=== PATIENT | female | born 1935 | race Caucasian/White ===

== ENCOUNTER 2019-04-10 10:57 | Inpatient (IN) | payer MEDICARE, OTHER ==
[2019-04-10] VITALS (10 sets, daily range): BP systolic 160–236; BP diastolic 63–90
[~2019-04-10] VITALS: Ht 154.9 cm; Wt 99.7 kg
[2019-04-10] MEDS ORDERED: NS IV 1000 ML 1,000 ML ONE (11:19)
--- NOTE | 2019-04-10 11:19 | ED General ---
General Stated Complaint: NAUSEA Source of Information: Patient Exam Limitations: No Limitations History of Present Illness Date Seen by Provider: Apr 10, 2019 Time Seen by Provider: 11:17 Initial Comments Patient has been vomiting for 2 days. She feels very weak. She denies fevers or chills. She denies urinary symptoms or abdominal pain. She was seen by her primary care physician yesterday who diagnosed a urinary tract infection. She was prescribed antibiotics but was unable to fill them.due to the late hour. Allergies and Home Medications Allergies Coded Allergies: No Known Drug Allergies (Unverified , 04/10/19) Patient Home Medication List Home Medication List Reviewed: Yes Review of Systems Review of Systems Constitutional: No fever; malaise, weakness EENTM: no symptoms reported Respiratory: no symptoms reported Cardiovascular: no symptoms reported Gastrointestinal: abdominal pain; No diarrhea; nausea, vomiting Genitourinary: see HPI Musculoskeletal: muscle pain All Other Systems Reviewed Negative Unless Noted: Yes Past Rizhqxg-Vzohhh-Sslysx Hx Patient Social History Alcohol Use: Denies Use Smoking Status: Never a Smoker Physical Exam Vital Signs Vital Signs - First Documented 04/10/19 10:57 Temp 37.1 Pulse 62 Resp 20 B/P (MAP) 120/47 (71) Pulse Ox 93 O2 Delivery Room Air Capillary Refill : Height, Weight, BMI Height: '" Weight: lbs. oz. kg; BMI Method: General Appearance: No Apparent Distress, WD/WN Eyes: Bilateral Eye Normal Inspection, Bilateral Eye PERRL, Bilateral Eye EOMI HEENT: PERRL/EOMI, Pharynx Normal Neck: Supple Respiratory: Lungs Clear, Normal Breath Sounds Cardiovascular: Regular Rate, Rhythm, No Edema Gastrointestinal: Non Tender, Soft Extremity: Normal Inspection, Normal Range of Motion Neurologic/Psychiatric: Alert, Oriented x3, No Motor/Sensory Deficits Skin: Cool, Damp Focused Exam Lactate Level 04/10/19 11:20: Lactic Acid Level 3.76*H Lactic Acid Level Laboratory Tests Test 04/10/19 11:20 Lactic Acid Level 3.76 MMOL/L (0.50-2.00) *H Progress/Results/Core Measures Suspected Sepsis SIRS Temperature: Pulse: Respiratory Rate: Laboratory Tests 04/10/19 11:05: White Blood Count 12.0H Blood Pressure / Mean: 04/10/19 11:20: Lactic Acid Level 3.76*H Laboratory Tests 04/10/19 11:05: Creatinine 0.92, Platelet Count 187, Total Bilirubin 0.8 Results/Orders Lab Results Laboratory Tests Test 04/10/19 11:05 04/10/19 11:20 Range/Units White Blood Count 12.0 H 4.3-11.0 10^3/uL Red Blood Count 5.25 4.35-5.85 10^6/uL Hemoglobin 16.0 11.5-16.0 G/DL Hematocrit 45 35-52 % Mean Corpuscular Volume 86 80-99 FL Mean Corpuscular Hemoglobin 30 25-34 PG Mean Corpuscular Hemoglobin Concent 35 32-36 G/DL Red Cell Distribution Width 12.2 10.0-14.5 % Platelet Count 187 130-400 10^3/uL Mean Platelet Volume 10.5 H 7.4-10.4 FL Neutrophils (%) (Auto) 82 H 42-75 % Lymphocytes (%) (Auto) 15 12-44 % Monocytes (%) (Auto) 3 0-12 % Eosinophils (%) (Auto) 0 0-10 % Basophils (%) (Auto) 0 0-10 % Neutrophils # (Auto) 9.8 H 1.8-7.8 X 10^3 Lymphocytes # (Auto) 1.8 1.0-4.0 X 10^3 Monocytes # (Auto) 0.3 0.0-1.0 X 10^3 Eosinophils # (Auto) 0.0 0.0-0.3 10^3/uL Basophils # (Auto) 0.0 0.0-0.1 10^3/uL Sodium Level 126 L 135-145 MMOL/L Potassium Level 3.2 L 3.6-5.0 MMOL/L Chloride Level 83 L 98-107 MMOL/L Carbon Dioxide Level 25 21-32 MMOL/L Anion Gap 18 H 5-14 MMOL/L Blood Urea Nitrogen 12 7-18 MG/DL Creatinine 0.92 0.60-1.30 MG/DL Estimat Glomerular Filtration Rate 58 BUN/Creatinine Ratio 13 Glucose Level 178 H 70-105 MG/DL Calcium Level 9.3 8.5-10.1 MG/DL Corrected Calcium 9.0 8.5-10.1 MG/DL Magnesium Level 1.6 1.6-2.4 MG/DL Total Bilirubin 0.8 0.1-1.0 MG/DL Aspartate Amino Transf (AST/SGOT) 30 5-34 U/L Alanine Aminotransferase (ALT/SGPT) 15 0-55 U/L Alkaline Phosphatase 83 40-136 U/L Total Protein 7.7 6.4-8.2 GM/DL Albumin 4.4 3.2-4.5 GM/DL Lipase 22 8-78 U/L Lactic Acid Level 3.76 *H 0.50-2.00 MMOL/L My Orders Orders - GLENIS OSORIO MD Cbc With Automated Diff (04/10/19 11:04) Comprehensive Metabolic Panel (04/10/19 11:04) Lactic Acid Analyzer (04/10/19 11:04) Lipase (04/10/19 11:04) Magnesium (04/10/19 11:04) Ua Culture If Indicated (04/10/19 11:04) Catheter(Urinary) Insert & Ass 03,15 (04/10/19 11:05) Abdomen Flat & Upright/Decub (04/10/19 11:15) Chest 1 View Ap/Pa Only (04/10/19 11:15) Ed Iv/Invasive Line Start (04/10/19 11:24) Ns Iv 1000 Ml (Sodium Chloride 0.9%) (04/10/19 11:24) Ns Iv 1000 Ml (Sodium Chloride 0.9%) (04/10/19 11:19) Blood Culture (04/10/19 11:53) Ceftriaxone For Iv Use (Rocephin For I (04/10/19 12:00) Vital Signs/I&O 04/10/19 10:57 Temp 37.1 Pulse 62 Resp 20 B/P (MAP) 120/47 (71) Pulse Ox 93 O2 Delivery Room Air Capillary Refill : Departure Communication (Admissions) Time/Spoke to Admitting Phy: 12:[address] Demarco who will admit at [facility] Impression Primary Impression: UTI (urinary tract infection) Additional Impressions: Sepsis Hyponatremia Vomiting Disposition: 09 ADMITTED INPATIENT Condition: Stable Admissions Decision to Admit Reason: Admit from ER (General) Decision to Admit/Date: Apr 10, 2019 Time/Decision to Admit Time: 12:20 Departure-Patient Inst. Referrals: MILES ROONEY MD (PCP/Family) Primary Care Physician GLENIS OSORIO MD Apr 10, 2019 11:19
[2019-04-10] MEDS ORDERED: SIMV40TA4 PO (11:21)
[2019-04-10] MEDS ORDERED: CIPR250T3 (11:21)
[2019-04-10] MEDS ORDERED: METO50TA15 PO (11:21)
[2019-04-10] MEDS ORDERED: PARO20TA5 PO (11:21)
[2019-04-10] MEDS ORDERED: LOSA50TA63 PO (11:21)
[2019-04-10] MEDS ORDERED: NS IV 1000 ML 1,000 ML IV SCH (11:24)
[2019-04-10 11:27] LABS: MEAN CORPUSCULAR HEMOGLOBIN 30 PG (25-34)
[2019-04-10 11:31] LABS: BASOPHILS % (AUTO) 0 % (0-10); EOSINOPHILS % (AUTO) 0 % (0-10); HEMATOCRIT 45 % (35-52); LYMPHOCYTES # (AUTO) 1.8 X 10^3 (1.0-4.0); LYMPHOCYTES % (AUTO) 15 % (12-44); MEAN CORPUSCULAR HGB CONC 35 G/DL (32-36); MEAN CORPUSCULAR VOLUME 86 FL (80-99); MEAN PLATELET VOLUME 10.5 FL (7.4-10.4); MONOCYTES # (AUTO) 0.3 X 10^3 (0.0-1.0); MONOCYTES % (AUTO) 3 % (0-12); NEUTROPHILS # (AUTO) 9.8 X 10^3 (1.8-7.8); NEUTROPHILS % (AUTO) 82 % (42-75); PLATELET COUNT 187 10^3/uL (130-400); RED CELL DISTRIBUTION WIDTH 12.2 % (10.0-14.5)
[2019-04-10 11:42] LABS: CALCIUM 9.3 MG/DL (8.5-10.1); CREATININE SERUM 0.92 MG/DL (0.60-1.30); POTASSIUM 3.2 MMOL/L (3.6-5.0)
[2019-04-10 11:43] LABS: ALBUMIN 4.4 GM/DL (3.2-4.5); BILIRUBIN,TOTAL 0.8 MG/DL (0.1-1.0); MAGNESIUM 1.6 MG/DL (1.6-2.4); TOTAL PROTEIN 7.7 GM/DL (6.4-8.2)
--- NOTE | 2019-04-10 11:55 | Diagnostic Imaging Report ---
EXAMINATION: Abdomen 2 view HISTORY: Urinary tract infection. FINDINGS: No comparison available. Bowel gas pattern is normal. No free air is seen. Phleboliths are present in the pelvis. IMPRESSION: 1. Normal bowel gas pattern. Dictated by: Dictated on workstation # [id number]
--- NOTE | 2019-04-10 11:55 | Diagnostic Imaging Report ---
EXAMINATION: Chest 1 view HISTORY: Urinary tract infection FINDINGS: No comparison available. The lungs are clear. No edema. No pneumonia. No pleural effusion. No pneumothorax. Heart is normal in size. IMPRESSION: 1. Clear lungs. Dictated by: Dictated on workstation # [id number]
[2019-04-10] MEDS ORDERED: cefTRIAXone FOR IV USE 1,000 MG in WATER (STERILE) FOR INJECTION 10 ML IV ONE (12:00)
[2019-04-10] MEDS ORDERED: NS W/KCL 20 MEQ/L 1,000 ML IV SCH (12:15)
[2019-04-10] MEDS ORDERED: NS IV 1000 ML 1,000 ML IV ONE (12:39)
[2019-04-10 12:48] LABS: CLARITY,URINE SL CLOUDY; COLOR,URINE YELLOW
[2019-04-10 12:49] LABS: BACTERIA,URINE FEW /HPF; BILIRUBIN,URINE NEGATIVE (NEGATIVE); GLUCOSE, URINE (UA) NEGATIVE (NEGATIVE); HYALINE CASTS, URINE 25-50 /LPF; KETONES,URINE 1+ (NEGATIVE); LEUKOCYTE ESTERASE ,URINE NEGATIVE (NEGATIVE); NITRITE,URINE NEGATIVE (NEGATIVE); PH,URINE 7.5 (5-9); PROTEIN,URINE 3+ (NEGATIVE); RBC,URINE 25-50 /HPF; UROBILINOGEN,URINE 0.2 MG/DL (NORMAL)
[2019-04-10] MEDS ORDERED: ANTACID SUSP 30 ML UDC (MYLANTA) PO PRN (13:45)
[2019-04-10] MEDS ORDERED: ACETAMINOPHEN 325 MG TABLET PO PRN (13:45)
[2019-04-10] MEDS ORDERED: MILK OF MAGNESIA 400 MG/5 ML 30 ML UDC PO PRN (13:45)
[2019-04-10] MEDS: NS IV 1000 ML 1,000 ML IV SCH ×2 (14:30→23:19)
--- NOTE | 2019-04-10 14:36 | NUR ---
PT ADMITTED TO ROOM 406 VIA EMS FROM ED FOR UROSEPSIS. A/OX4. IV TO LEFT AC INFUSING NS AT 250 WITHOUT DIFFICULTY. CHILEL DRAINAGE CLEAR URINE. 2LNC IN PLACE. VS OBTAINED. PLAN OF CARE DISCUSSED WITH PATIENT. ORIENTED PT TO ROOM/CALL LIGHT/THERMOSTAT. FALL RISK BRACELET IN PLACE. SCD'S APPLIED. PT VERBALIZED UNDERSTANDING OF USE OF CALL LIGHT.
--- NOTE | 2019-04-10 16:41 | NUR ---
DR OBANDO NOTIFIED OF PT BP 164/81, HR RUNNING IN THE LOW 50'S. DVT RISK NOTIFICATION-HIGH RISK. ORDERS RECEIVED FOR HOME MEDICATION OF LOSARTAN 50MG DAILY LOVENOX 40MG TELEMETRY D/C SEPSIS VS AND GET VS Q4HRS PATIENT AND DAUGHTER UPDATED ON PLAN OF CARE
[2019-04-10] MEDS: LOSARTAN 50 MG (COZAAR) TAB PO SCH (17:21)
[2019-04-10] MEDS: ENOXAPARIN 40 MG/0.4 ML (LOVENOX) SYR SC SCH (17:23)
[2019-04-10] MEDS ORDERED: NITROGLYCERIN 2% OINT 1 GM UNIT DOSE PACKET ONE (20:19)
[2019-04-10] MEDS: NITROGLYCERIN 2% OINT 1 GM UNIT DOSE PACKET TOP PRN ×2 (20:29→20:51)
[2019-04-10] MEDS: MELATONIN 3 MG TABLET PO PRN (20:35)
[2019-04-10] MEDS ORDERED: hydrALAZINE (APESOLINE) 20 MG/ML VIAL ONE (21:37)
[2019-04-10] MEDS: hydrALAZINE (APESOLINE) 20 MG/ML VIAL IV PRN (21:48)
[2019-04-11 04:00] VITALS: BP 162/78
[2019-04-11 05:29] LABS: BASOPHILS % (AUTO) 0 % (0-10); EOSINOPHILS % (AUTO) 0 % (0-10); HEMATOCRIT 40 % (35-52); HEMOGLOBIN 13.4 G/DL (11.5-16.0); LYMPHOCYTES % (AUTO) 18 % (12-44); MEAN CORPUSCULAR HEMOGLOBIN 30 PG (25-34); MEAN CORPUSCULAR HGB CONC 34 G/DL (32-36); MEAN CORPUSCULAR VOLUME 88 FL (80-99); MEAN PLATELET VOLUME 10.6 FL (7.4-10.4); MONOCYTES # (AUTO) 1.1 X 10^3 (0.0-1.0); MONOCYTES % (AUTO) 9 % (0-12); NEUTROPHILS # (AUTO) 8.3 X 10^3 (1.8-7.8); NEUTROPHILS % (AUTO) 73 % (42-75); PLATELET COUNT 169 10^3/uL (130-400); RED CELL DISTRIBUTION WIDTH 13.1 % (10.0-14.5); WHITE BLOOD COUNT 11.3 10^3/uL (4.3-11.0)
[2019-04-11] MEDS: ENOXAPARIN 40 MG/0.4 ML (LOVENOX) SYR SC SCH ×2 (05:35→16:15)
[2019-04-11] MEDS: NS IV 1000 ML 1,000 ML IV SCH (05:35)
[2019-04-11 05:54] LABS: ALANINE AMINOTRANSFERASE 14 U/L (0-55); ALBUMIN 3.5 GM/DL (3.2-4.5); ALKALINE PHOSPHATASE 59 U/L (40-136); BILIRUBIN,TOTAL 0.5 MG/DL (0.1-1.0); BUN/CREATININE RATIO 14; CALCIUM 8.6 MG/DL (8.5-10.1); CARBON DIOXIDE 25 MMOL/L (21-32); CHLORIDE 99 MMOL/L (98-107); CREATININE SERUM 0.77 MG/DL (0.60-1.30); GFR ESTIMATED > 60; GLUCOSE 106 MG/DL (70-105); POTASSIUM 3.4 MMOL/L (3.6-5.0); SODIUM 135 MMOL/L (135-145); TOTAL PROTEIN 5.9 GM/DL (6.4-8.2)
[2019-04-11 08:00] VITALS: BP 197/100
[2019-04-11] MEDS: hydrALAZINE (APESOLINE) 20 MG/ML VIAL IV PRN (08:56)
[2019-04-11] MEDS ORDERED: ASCO-262 PO (09:21)
[2019-04-11] MEDS ORDERED: OMG1KC PO (09:21)
[2019-04-11] MEDS ORDERED: FOLI1TAB6 PO (09:21)
[2019-04-11] MEDS ORDERED: NAPR220T66 PO (09:21)
[2019-04-11] MEDS ORDERED: ASPI-983 PO (09:21)
--- NOTE | 2019-04-11 09:22 | NUR ---
SPOKE WITH PT (SHE HAD A MED LIST WITH HER) WELL GOING THRU THE EXT MED HISTORY TO COMPLETE THE MED REC. PT WAS PRESCRIBED CIPRO RECENTLY BUT THE PT NEVER PICKED IT UP FROM THE PHARMACY (FOR THAT REASON I DID NOT INCLUDE THIS IN THE MED REC) ALL OF THE PTS OTHER MEDICATIONS MATCHED THE EXTERNAL MED HISTORY AND THE PT WAS ABLE TO TELL HE HOW SHE TAKES THEM. OTC MEDS: CENTRUM: 1 DAILY VITAMIN C: 1 DAILY FISH OIL: 1 DAILY ASPIRIN 81M DAILY NAPROXEN 220M Q 6 H PRN
[2019-04-11] MEDS: amLODIPine 5 MG (NORVASC) TAB PO SCH (09:49)
--- NOTE | 2019-04-11 11:47 | History & Physical-Hospitalist ---
RAJ ALLEN [facility] 04/11/19 1147: History of Present Illness HPI/Chief Complaint CC: Flank and side pain + vomitting HPI: Mrs. Feng is a 83 yo WF presenting with several days of vomiting + flank and side pain. All of her symptoms started on Thursday evening. She proceeded to go to the [facility] and was prescribe CIPRO, but was unable to brandi l her prescription because of how late it was in the evening. She denies taking anything to alleviate or aggrevating factors. She rates the pain as constant, the worst being 7/10. The pain was stated to radiate from her back to her groin. She went to the ER last night and was admitted there after. Source: patient Exam Limitations: no limitations Date Seen 04/11/19 Time Seen by a Provider: 07:30 Attending Physician Judy Demarco MD PCP Marti Celaya MD Referring Physician Date of Admission Apr 10, 2019 at 12:39 Home Medications & Allergies Home Medications Reviewed patient Home Medication Reconciliation performed by pharmacy medication reconciliations automotive repair technician and/or nursing. Patients Allergies have been reviewed. Allergies Allergies Coded Allergies No Known Drug Allergies (Unverified04/10/19) Past Veutkyj-Fbkecr-Yxtefg Hx Past Med/Social Hx: Reviewed Nursing Past Med/Soc Hx Patient Social History Marrital Status: Number of Children: 3 Number of living children: 3 Employed/Student: retired Alcohol Use: Denies Use Recreational Drug Use: No Smoking Status: Never a Smoker Physical Abuse Screen: No Sexual Abuse: No Recent Foreign Travel: No Contact w/other who traveled: No Recent Hopitalizations: No Recent Infectious Disease Expo: No Seasonal Allergies Seasonal Allergies: No Past Medical History Surgeries: Hysterectomy, Joint Replacement Currently Using CPAP: No Currently Using BIPAP: No Cardiac: High Cholesterol, Hypertension : No Reproductive: No Sexually Transmitted Disease: No HIV/AIDS: No Female Reproductive Disorders: Denies Hysterectomy Are Your Blood Sugars Over 250: No Loss of Vision: Denies Hearing Impairment: Denies History of Blood Disorders: No Adverse Reaction to Blood Barron: No Family History FH: cancer 19 MOTHER FH: heart failure 19 FATHER 19 MOTHER Review of Systems Constitutional: no symptoms reported EENTM: no symptoms reported Respiratory: no symptoms reported Cardiovascular: no symptoms reported Gastrointestinal: no symptoms reported Genitourinary: see HPI : No Control/STD Prophylaxis: None Musculoskeletal: no symptoms reported Skin: no symptoms reported Psychiatric/Neurological: No Symptoms Reported Physical Exam Physical Exam Vital Signs Vital Signs - First Documented 04/10/19 04/10/19 10:57 12:10 Temp 37.1 Pulse 62 Resp 20 B/P (MAP) 120/47 (71) Pulse Ox 93 O2 Delivery Room Air O2 Flow Rate 2.00 Capillary Refill : Less Than 3 Seconds Height, Weight, BMI Height: '" Weight: 210lbs. 8.7oz. 95.780669bz; 41.55 BMI Method: General Appearance: No Apparent Distress, WD/WN Eyes: Bilateral Eye Normal Inspection, Bilateral Eye PERRL, Bilateral Eye EOMI HEENT: PERRL/EOMI, Normal ENT Inspection, Pharynx Normal, Moist Mucous Membranes Neck: Normal Inspection, Non Tender, Supple Respiratory: Chest Non Tender, Lungs Clear, Normal Breath Sounds, No Accessory Muscle Use, No Respiratory Distress Cardiovascular: Regular Rate, Rhythm, No Gallop, No JVD, No Murmur, Normal Peripheral Pulses Gastrointestinal: Normal Bowel Sounds, No Pulsatile Mass, Non Tender, Soft Back: Normal Inspection Extremity: Normal Capillary Refill, Normal Inspection, Normal Range of Motion, Non Tender, No Calf Tenderness Neurologic/Psychiatric: Alert, Oriented x3, No Motor/Sensory Deficits, Normal 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 Assessment/Plan Admission Diagnosis Urosepsis - complication from UTI Admission Status: Observation Assessment and Plan Assessment: 1. UTI 2. HTN 3. SSRI for unknown reason Plan: 1. CEFTRIAXONE for UTI management 2. Continue to give normal BP meds and monitor patient 3. Remove Delgadillo catheter 4. Maintain hydration via fluids. Clinical Quality Measures DVT/VTE Risk/Contraindication: Risk Factor Score Per Nursin RFS Level Per Nursing on Admit: 4+=Very High MARK BARON DO 04/11/192036: History of Present Illness HPI/Chief Complaint CC: Nausea vomiting with sepsis HPI: This is an 83yoWF clinic pt of Dr. Celaya who presents to the hospital ER with nausea and vomiting unable to fill her antibiotic when she was seen the night before in the ER because of the late hour and she could not manage anything more at home because of the significant nausea an vomiting. She was placed on the empiric antibiotic of Rocephin, has felt better since IV fluids initiated and is open to discontinuing the delgadillo, heplocking IV fluids since she is eating and drinking well. Initiated PT and OT, will DC telemetry and will initiate Norvasc 5mg for BP out of control. Past Sonwncm-Arqntv-Vehzid Hx Past Med/Social Hx: Reviewed and Corrections made Family History FH: cancer 19 MOTHER FH: heart failure 19 FATHER 19 MOTHER Physical Exam Physical Exam General Appearance: Chronically ill Assessment/Plan Admission Diagnosis Assessment: Sepsis UTI N/V HTN OOC Plan: ABx HLIVF DC Tely Admission Status: Inpatient Order (span 2 midnights) Reason for Inpatient Admission: failed outpatient treament Diagnosis/Problems Diagnosis/Problems (1) Sepsis Status: Acute Qualifiers: Sepsis type: sepsis due to unspecified organism Sepsis acute organ dysfunction status: without acute organ dysfunction Qualified Codes: A41.9 - Sepsis, unspecified organism (2) UTI (urinary tract infection) Status: Acute Qualifiers: Urinary tract infection type: acute cystitis Hematuria presence: without hematuria Qualified Codes: N30.00 - Acute cystitis without hematuria (3) Vomiting Status: Acute Qualifiers: Vomiting type: unspecified Vomiting Intractability: intractable Nausea presence: with nausea Qualified Codes: R11.2 - Nausea with vomiting, unspecified (4) Hyponatremia Status: Acute Supervisory-Addendum Brief Verification & Attestation Participated in pt care: history, MDM, physical Personally performed: exam, history, MDM, supervision of care Care discussed with: Medical Student Procedures: n/a Results interpretation: Verified all documentation Verification and Attestation of Medical Student E/M Service A medical student performed and documented this service in my presence. I reviewed and verified all information documented by the medical student and made modifications to such information, when appropriate. I personally performed the physical exam and medical decision making. Mark Baron, Apr 11, 2019,20:37 [facility] Apr 11, 2019 11:47 MARK BARON DO Apr 11, 2019 20:37
[2019-04-11 12:00] VITALS: BP 150/72
[2019-04-11] MEDS: cefTRIAXone FOR IV USE 1,000 MG in WATER (STERILE) FOR INJECTION 10 ML IV SCH (12:16)
--- NOTE | 2019-04-11 12:36 | Physical Therapy Evaluation ---
PT Evaluation-General Medical Diagnosis Admission Date Apr 10, 2019 at 12:39 Medical Diagnosis: urosepsis Onset Date: Apr 10, 2019 Therapy Diagnosis Therapy Diagnosis: debility/weakness Height/Weight Weight (Pounds): 210 Weight (Ounces): 8.7 Precautions Precautions/Isolations: Fall Prevention, Standard Precautions Weight Bear Status Right Lower Extremity: Right Weight Bearing/Tolerated Left Lower Extremity: Left Weight Bearing/Tolerated Referral Physician: Clara Reason for Referral: Evaluation/Treatment Medical History Current History has been treating a UTI, however, went to ER due to UTI Social History Home: Single Level Current Living Status: Alone Entry Into Home: Level Entry Prior/Core FIM Prior Level of Function Therapy Code Descriptions/Definitions Functional [place] Measure: 0=Not Assessed/NA 4=Minimal Assistance 1=Total Assistance 5=Supervision or Setup 2=Maximal Assistance 6=Modified [place] 3=Moderate Assistance 7=Complete [place] Therapy Quality Codes: 6 Independent with activity with or without an assistive device 5 Patient requires set up or clean up by helper. Patient completes activity by themselves 4 Supervision or touching assist (CGA). [place] provide cues , steadying assist 3 The helper provides less than half the effort to complete the activity 2 The helper provides more than half the effort to complete the activity 1 Dependent. The helper does all the effort to complete an activity 7 Patient refused to complete or attempt activity 9 The patient did not perform the activity before the current illness or i njury 88 Not attempted due to Medical conditions or safety concerns Functional Abilities and Goals: Independent: Patient completed the activities by him/herself, with or without an assistive device, with no assistance from a helper. Needed Some Help: Patient needed partial assistance from another person to complete activities. Dependent: A helper completed the activities for the patient. Unknown: Not Applicable: Bed Mobility: 7 Transfers (B,C,W/C) (FIM): 7 Gait: 7 Indoor Mobility (Ambulation): Independent Prior Devices Use: None, Walker has a FWW for use PRN/drives PT Evaluation-Current Subjective Patient agrees to PT. Pain Numeric Pain Scale: 5-Moderate Pain Location: Right Location Body Site: Side Pain Description: Acute Objective Patient Orientation: Normal For Age Problem Solving: Fair Attachments: Oxygen, Wallace Catheter ROM/Strength ROM Lower Extremities bilateral LE WFL Strength Lower Extremities 3+/5 grossly bilateral LE Integumentary/Posture Integumentary refer to nursing notes Bowel Incontinence: No Bladder Incontinence: Wallace Cath Posture WFL Neuromuscular (Tone, Coordination, Reflexes) grossly intact Sensory Vision: Functional Hearing: Functional Sensation Right Lower Extremit: Intact Sensation Left Lower Extremity: Intact Transfers Therapy Code Descriptions/Definitions Functional [place] Measure: 0=Not Assessed/NA 4=Minimal Assistance 1=Total Assistance 5=Supervision or Setup 2=Maximal Assistance 6=Modified [place] 3=Moderate Assistance 7=Complete [place] Transfers (B, C, W/C) (FIM): 6 Scootin Rollin Supine to/from Sit: 6 Sit to/from Stand: 6 Gait Mode of Locomotion: Walk Anticipated Mode of Locomotion: Walk Gait (FIM): 5 Distance (FIM): 3=150 ft Distance: 250' Gait Level of Assist: 5 Gait Assistive Device: FWW Comments/Gait Description slow, steady gait sequence Balance Sitting Static: Normal Sitting Dynamic: Normal Standing Static: Normal Standing Dynamic: Normal Assessment/Needs 83 y.o. female, will be seen short term by skilled PT to address functional strength and mobility. Patient fatigues with minimal activity, however, demonstrates good mobility. Rehab Potential: Fair PT Group Home Goals Group Home Goals PT Cullet Washer Goals Time Frame: Apr 16, 2019 Transfers (B,C,W/C) (FIM): 6 Gait (FIM): 6 Gait distance (FIM): 3=150 ft Gait Level of Assist: 6 Gait Assistive Device: FWW PT Plan Problem List Problem List: Activity Tolerance Treatment/Plan Treatment Plan: Continue Plan of Care Treatment Plan: Bed Mobility, Education, Functional Activity S[place], Functional Strength, Gait, Safety, Therapeutic Exercise, Transfers Treatment Duration: Apr 16, 2019 Frequency: 6 times per week Estimated Hrs Per Day: .25 hour per day Patient and/or Family Agrees t: Yes Time/GCodes Time In: 1030 Time Out: 1048 Total Billed Treatment Time: 18 Total Billed Treatment 1 visit EVModC 18 min ALO RAMIREZ PT Apr 11, 2019 12:36
--- NOTE | 2019-04-11 14:00 | NUR ---
Pastoral Care Visit.
--- NOTE | 2019-04-11 14:10 | Occ Therapy Progress Note ---
Therapy Progress Note OT order received, chart reviewed. Pt. up in chair with family around her. Pt. requests for OT to come back at later time. Will check back this afternoon as time allows. 1400 1,visit DARIUSZ LECHUGA OT Apr 11, 2019 14:10
[2019-04-11] MEDS: LOSARTAN 50 MG (COZAAR) TAB PO SCH (15:35)
[2019-04-11 15:55] VITALS: BP 183/70
[2019-04-11 19:48] VITALS: BP 162/71
[2019-04-11] MEDS ORDERED: ALPRAZolam 0.25 MG (XANAX) TAB PO PRN (20:45)
[2019-04-11] MEDS ORDERED: CALCIUM CARBONATE 500 MG (TUMS) TAB.CHEW PO PRN (20:45)
[2019-04-11] MEDS ORDERED: DOCUSATE SODIUM 100 MG (COLACE) CAP PO PRN (20:45)
[2019-04-11] MEDS ORDERED: diphenhydrAMINE 25 MG TAB (BENADRYL) PO PRN (20:45)
[2019-04-11] MEDS ORDERED: MELATONIN 3 MG TABLET PO PRN (20:45)
[2019-04-11] MEDS ORDERED: HYDROcodone/APAP 5 MG/325 MG (LORTAB) TAB PO PRN (20:45)
[2019-04-11] MEDS ORDERED: LOPERAMIDE 2 MG (IMODIUM) TABLET PO PRN (20:45)
[2019-04-11] MEDS: SENNA W/DOCUSATE (SENOKOT S) TABLET PO SCH (21:32)
[2019-04-11] MEDS: MELATONIN 3 MG TABLET PO PRN (21:33)
[2019-04-12] VITALS (7 sets, daily range): BP systolic 149–196; BP diastolic 65–80
[2019-04-12 05:16] LABS: BASOPHILS % (AUTO) 0 % (0-10); EOSINOPHILS % (AUTO) 0 % (0-10); HEMATOCRIT 39 % (35-52); HEMOGLOBIN 13.2 G/DL (11.5-16.0); LYMPHOCYTES # (AUTO) 1.1 X 10^3 (1.0-4.0); LYMPHOCYTES % (AUTO) 13 % (12-44); MEAN CORPUSCULAR HEMOGLOBIN 30 PG (25-34); MEAN CORPUSCULAR HGB CONC 34 G/DL (32-36); MEAN CORPUSCULAR VOLUME 90 FL (80-99); MEAN PLATELET VOLUME 11.1 FL (7.4-10.4); MONOCYTES # (AUTO) 0.9 X 10^3 (0.0-1.0); MONOCYTES % (AUTO) 10 % (0-12); NEUTROPHILS # (AUTO) 6.8 X 10^3 (1.8-7.8); NEUTROPHILS % (AUTO) 76 % (42-75); PLATELET COUNT 141 10^3/uL (130-400); RED CELL DISTRIBUTION WIDTH 13.5 % (10.0-14.5); WHITE BLOOD COUNT 8.9 10^3/uL (4.3-11.0)
[2019-04-12] MEDS: ENOXAPARIN 40 MG/0.4 ML (LOVENOX) SYR SC SCH ×2 (05:36→16:05)
[2019-04-12 05:41] LABS: ALANINE AMINOTRANSFERASE 17 U/L (0-55); ALBUMIN 3.4 GM/DL (3.2-4.5); ALKALINE PHOSPHATASE 67 U/L (40-136); BILIRUBIN,TOTAL 0.5 MG/DL (0.1-1.0); BUN/CREATININE RATIO 11; CARBON DIOXIDE 28 MMOL/L (21-32); CHLORIDE 100 MMOL/L (98-107); CREATININE SERUM 0.73 MG/DL (0.60-1.30); GFR ESTIMATED > 60; GLUCOSE 111 MG/DL (70-105); POTASSIUM 3.2 MMOL/L (3.6-5.0); SODIUM 137 MMOL/L (135-145)
[2019-04-12] MEDS ORDERED: KCL 10 MEQ TAB (MICRO K) PO NR (08:30)
--- NOTE | 2019-04-12 08:56 | Progress Note - Hospitalist ---
RAJ ALLEN [facility] 04/12/19 0856: Subjective HPI/CC On Admission Date Seen by Provider: Apr 12, 2019 Time Seen by Provider: 07:15 CC: Nausea vomiting with sepsis HPI: This is an 83yoWF clinic pt of Dr. Celaya who presents to the hospital ER with nausea and vomiting unable to fill her antibiotic when she was seen the night before in the ER because of the late hour and she could not manage anything more at home because of the significant nausea an vomiting. She was placed on the empiric antibiotic of Rocephin, has felt better since IV fluids initiated and is open to discontinuing the delgadillo, heplocking IV fluids since she is eating and drinking well. Initiated PT and OT, will DC telemetry and will initiate Norvasc 5mg for BP out of control. Subjective/Events-last exam BP is still elevated and fluctuating. Other vitals are normal and stable. Slept well last night. Eating and drinking well. Voiding well. No BM. No complaints of constipation. Walked yesterday with the walk well. ROS: +: n/a -: N/V/D, Fever/Chills, Fatigue, SOB, Chest pain, JOE, vertigo, palpitations Focused Exam Lactate Level 04/10/19 11:20: Lactic Acid Level 3.76*H 04/10/19 13:20: Lactic Acid Level 1.67 Objective Exam Vital Signs Vital Signs Date Time Temp Pulse Resp B/P (MAP) Pulse Ox O2 Delivery O2 Flow Rate FiO2 04/12/19 04:20 36.8 84 18 182/77 96 Nasal Cannula 2.00 Capillary Refill : Less Than 3 Seconds General Appearance: No Apparent Distress, WD/WN HEENT: PERRL/EOMI, Normal ENT Inspection, Moist Mucous Membranes Neck: Normal Inspection, Non Tender, Supple Respiratory: Chest Non Tender, Lungs Clear, Normal Breath Sounds, No Accessory Muscle Use, No Respiratory Distress Cardiovascular: Regular Rate, Rhythm, No Edema, No Gallop, No JVD, No Murmur, Normal Peripheral Pulses Gastrointestinal: Normal Bowel Sounds, No Pulsatile Mass, Non Tender, Soft Back: Normal Inspection Extremity: Normal Capillary Refill, Normal Inspection, Non Tender, No Calf Tenderness, No Pedal Edema Neurologic/Psychiatric: Alert, Oriented x3, No Motor/Sensory Deficits, Normal 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 Assessment/Plan Assessment and Plan Assess & Plan/Chief Complaint Assessment: 1. UTI 2. HTN 3. SSRI for unknown reason Plan: 1. CEFTRIAXONE for UTI management 2. Continue to give normal BP meds and monitor patient 3. Remove Delgadillo catheter 4. Maintain hydration via fluids. Clinical Quality Measures DVT/VTE Risk/Contraindication: Risk Factor Score Per Nursin RFS Level Per Nursing on Admit: 4+=Very High LEAH BARON DO 04/12/192032: Subjective Subjective/Events-last exam Hospital course: Pt had an uneventful hospital course for a total of 3 days when she was hospitalized for nausea and vomiting and sepsis from UTI. Her nausea and vomiting did ultimately resolve, Pt maintained on Rocephin broad-spectrum antibiotic coverage for UTI. We restarted all of her home medications including Aspirin but her BP remained labile so adjustments were made but she was able to urinate well since delgadillo catheter was discontinued and overall felt very weak so she [facility] recovering since she does live alone and she is at an advanced age of [age] years old and does have high risk of falls. Assessment/Plan Assessment and Plan Assess & Plan/Chief Complaint Not IRF candidate since too functional DC planned for tomorrow Diagnosis/Problems Diagnosis/Problems (1) Sepsis Status: Acute Qualifiers: Qualified Codes: A41.9 - Sepsis, unspecified organism (2) UTI (urinary tract infection) Status: Acute Qualifiers: Qualified Codes: N30.00 - Acute cystitis without hematuria (3) Vomiting Status: Acute Qualifiers: Qualified Codes: R11.2 - Nausea with vomiting, unspecified (4) Hyponatremia Status: Acute Supervisory-Addendum Brief Verification & Attestation Participated in pt care: history, MDM, physical Personally performed: exam, history, MDM, supervision of care Care discussed with: Medical Student Procedures: n/a Results interpretation: Verified all documentation Verification and Attestation of Medical Student E/M Service A medical student performed and documented this service in my presence. I reviewed and verified all information documented by the medical student and made modifications to such information, when appropriate. I personally performed the physical exam and medical decision making. Leah Baron, Apr 12, 2019,20:33 RAJ ALLEN [facility] Apr 12, 2019 08:56 LEAH BARON DO Apr 12, 2019 20:33
[2019-04-12] MEDS: SENNA W/DOCUSATE (SENOKOT S) TABLET PO SCH ×2 (09:00→20:02)
[2019-04-12] MEDS: amLODIPine 5 MG (NORVASC) TAB PO SCH (09:00)
--- NOTE | 2019-04-12 10:50 | Physical Therapy Daily Note ---
PT Daily Note-Current Subjective Patient states she is feeling better but tired. Pain Numeric Pain Scale: 3 Location: Soft Tissue Location Body Site: Abdomen Pain Description: Ache Mental Status Patient Orientation: Normal For Age Attachments: Oxygen Transfers Therapy Code Descriptions/Definitions Functional [place] Measure: 0=Not Assessed/NA 4=Minimal Assistance 1=Total Assistance 5=Supervision or Setup 2=Maximal Assistance 6=Modified [place] 3=Moderate Assistance 7=Complete [place] Therapy Quality Codes: 6 Independent with activity with or without an assistive device 5 Patient requires set up or clean up by helper. Patient completes activity by themselves 4 Supervision or touching assist (CGA). [place] provide cues , steadying assist 3 The helper provides less than half the effort to complete the activity 2 The helper provides more than half the effort to complete the activity 1 Dependent. The helper does all the effort to complete an activity 7 Patient refused to complete or attempt activity 9 The patient did not perform the activity before the current illness or injury 88 Not attempted due to Medical conditions or safety concerns Transfers (B, C, W/C) (FIM): 7 Scootin Rollin Supine to/from Sit: 7 Sit to/from Stand: 7 Bed to/from Chair: 7 Weight Bearing Right Lower Extremity: Right Weight Bearing/Tolerated Left Lower Extremity: Left Weight Bearing/Tolerated Gait Training Gait (FIM): 6 Distance (FIM): 3=150 ft Distance: 300' Gait Level of Assist: 6 Gait Assistive Device: FWW slow, steady gait/PT instructed patient to ambulate PRN in hallway with FWW Assessment Patient tolerated treatment well and is up in recliner to order breakfast. Patient is safe to ambulate modified independently in hallway PRN. PT Skid Adzer Goals Skid Adzer Goals PT [facility] Goals Time Frame: Apr 16, 2019 Transfers (B,C,W/C) (FIM): 6 Gait (FIM): 6 Gait distance (FIM): 3=150 ft Gait Level of Assist: 6 Gait Assistive Device: FWW PT Plan Treatment/Plan Treatment Plan: Continue Plan of Care Treatment Plan: Bed Mobility, Education, Functional Activity Saba, Functional Strength, Gait, Safety, Therapeutic Exercise, Transfers Treatment Duration: Apr 16, 2019 Frequency: 6 times per week Estimated Hrs Per Day: .25 hour per day Patient and/or Family Agrees t: Yes Time/GCodes Time In: 1012 Time Out: 1025 Total Billed Treatment Time: 13 Total Billed Treatment 1 visit FA 13 min ALO RAMIREZ PT Apr 12, 2019 10:50
--- NOTE | 2019-04-12 11:35 | Occupational Therapy Eval ---
OT Evaluation-General/PLF Medical Diagnosis Admission Date Apr 10, 2019 at 12:39 Medical Diagnosis: urosepsis Onset Date: Apr 10, 2019 Therapy Diagnosis Therapy Diagnosis: Weakness Height/Weight Weight (Pounds): 210 Weight (Ounces): 8.7 Precautions Precautions/Isolations: Fall Prevention, Standard Precautions Safety Interventions: Bed Exit Alarm Weight Bear Status Weight Bearing Restriction: Weight Bearing/Tolerated Referral Physician: Clara Referral Reason: Activity Tolerance, Self Care, Evaluation/Treatment, Strengthening/ROM Medical History Pertinent Medical History: HTN Additional Medical History Hysterectomy, joint replacement Current History Pt. states that she became ill and has been vomiting. No longer vomiting, but reports that her stomach is sore from vomiting. Reviewed History: Yes Social History Home: Single Level Current Living Status: Alone Entry Into Home: Stairs With Railing Steps Into Home: 1 ADL-Prior Level of Function Therapy Code Descriptions/Definitions Functional [place] Measure: 0=Not Assessed/NA 4=Minimal Assistance 1=Total Assistance 5=Supervision or Setup 2=Maximal Assistance 6=Modified [place] 3=Moderate Assistance 7=Complete [place] Therapy Quality Codes: 6 Independent with activity with or without an assistive device 5 Patient requires set up or clean up by helper. Patient completes activity by themselves 4 Supervision or touching assist (CGA). [place] provide cues , steadying assist 3 The helper provides less than half the effort to complete the activity 2 The helper provides more than half the effort to complete the activity 1 Dependent. The helper does all the effort to complete an activity 7 Patient refused to complete or attempt activity 9 The patient did not perform the activity before the current illness or injury 88 Not attempted due to Medical conditions or safety concerns Functional Abilities and Goals: Independent: Patient completed the activities by him/herself, with or without an assistive device, with no assistance from a helper. Needed Some Help: Patient needed partial assistance from another person to complete activities. Dependent: A helper completed the activities for the patient. Unknown: Not Applicable: ADL PLOF Comments Pt. states that she was independent with daily skills previous to this hospitalization. She does her own cooking, and occasionally has a veterinary medicine doctor. Self Care: Independent Functional Cognition: Independent DME/Equipment Comments Pt. states that she has an old walker that was her mothers, but that she does not use it. Drive Self: Yes OT Current Status Subjective Pt. reports that her stomach is sore from vomiting, but does not report a pain level. Otherwise, pt. states that she feels tired. Appearance Pt. in bed asleep. Wakes up with encouragement and agrees to treatment. Mental Status/Objective Patient Orientation: Person, Place, Time, Situation Current Upper Extremity ROM WFL ADL-Treatment Therapy Code Descriptions/Definitions Functional [place] Measure: 0=Not Assessed/NA 4=Minimal Assistance 1=Total Assistance 5=Supervision or Setup 2=Maximal Assistance 6=Modified [place] 3=Moderate Assistance 7=Complete [place] Therapy Quality Codes: 6 Independent with activity with or without an assistive device 5 Patient requires set up or clean up by helper. Patient completes activity by themselves 4 Supervision or touching assist (CGA). [place] provide cues , steadying assist 3 The helper provides less than half the effort to complete the activity 2 The helper provides more than half the effort to complete the activity 1 Dependent. The helper does all the effort to complete an activity 7 Patient refused to complete or attempt activity 9 The patient did not perform the activity before the current illness or injury 88 Not attempted due to Medical conditions or safety concerns Lower Body Dressing (FIM): 6 (Pt. able to doff/don slipper socks seated on bed and holding bed rail for balance.) Toileting (FIM): 6 Transfers (B, C, W/C) (FIM): 6 (Increased time needed for supine-sit due to pt. just waking up. Mod I with walker to stand and ambulate to bathroom.) Toilet/Commode Transfer (FIM): 6 Pt. declines showering at this time. States, "I might do it later." Pt. transfers and ambulates to toilet for toileting task. Pt. demonstrates ability to doff/don slipper socks. States that she has been taking self to bathroom throughout the night. OT encourages pt. to complete PT at discharge for further strengthening. Pt. reports that she does not want this and will have assistance from family as needed at home. Pt. reports, "I would like one more day in the hospital." Pt. ambulated back to bed and transferred with Mod I into supine position. All needs are met. No further OT needs warranted at this time. Education OT Patient Education: Correct positioning, Modified ADL techniques, Progress toward Goal/Update tx plan, Purpose of tx/functional activities, Reviewed precautions, Rehab process, Transfer techniques Teaching Recipient: Patient Teaching Methods: Demonstration, Discussion Response to Teaching: Verbalize Understanding, Return Demonstration OT Short Term Goals Short Term Goals 1=Demonstrate adherence to instructed precautions during ADL tasks. 2=Patient will verbalize/demonstrate understanding of assistive devices/modifications for ADL. 3=Patient will improve strength/tolerance for activity to enable patient to perform ADL's. OT Freight Solicitor Goals Retirement Goals Time Frame: Apr 12, 2019 Additional Goals: 1-Demonstrate ADL Tasks, 2-Verbalize Understanding 1=Demonstrate adherence to instructed precautions during ADL tasks. 2=Patient will verbalize/demonstrate understanding of assistive devices/modifications for ADL. 3=Patient will improve strength/tolerance for activity to enable patient to perform ADL's. Pt. demonstrates ADL transfers with Mod I. Demonstrates ability to toilet and reach feet. Reports that she feels she has no further needs for OT skills training or strengthening at this time. OT Education/Plan Problem List/Assessment Assessment: No Skilled OT Needs ID'd Discharge Recommendations Plan/Recommendations: Discontinue OT Therapy Discharge Recommendati: Other, See Comments (Home with family assist.) Comment Pt. may need a new walker at discharge. States that she is using a walker in hospital, and the walker she has is from her mother. Treatment Plan/Plan of Care Treatment,Training & Education: Yes Treatment Duration: Apr 12, 2019 Frequency: 1 time per week Estimated Hrs Per Day: .25 hour per day Agreement: Yes Rehab Potential: Good Time/GCodes Start Time: 08:25 Stop Time: 08:45 Total Time Billed (hr/min): 20 Billed Treatment Time 1, EVL Discharge OT at this time. DARIUSZ LECHUGA OT Apr 12, 2019 11:35
[2019-04-12] MEDS: KCL 10 MEQ TAB (MICRO K) PO SCH ×2 (13:03→16:05)
[2019-04-12] MEDS: cefTRIAXone FOR IV USE 1,000 MG in WATER (STERILE) FOR INJECTION 10 ML IV SCH (13:03)
--- NOTE | 2019-04-12 13:21 | NUR ---
IRF Evaluation Order received to evaluate patient for the ARU. Chart review complete and it appears patient is function at/near baseline, i.e., independent with transfers, modified independent with ambulation (300ft, FWW), and modified independent with ADLs; therefore, patient does not require intensive therapies, at this time. Thank you for this referral.
[2019-04-12] MEDS: LOSARTAN 50 MG (COZAAR) TAB PO SCH (16:05)
[2019-04-12] MEDS: MELATONIN 3 MG TABLET PO PRN (20:01)
[2019-04-12] MEDS ORDERED: amLODIPine 5 MG (NORVASC) TAB PO ONE (20:45)
[2019-04-12] MEDS: SIMvastatin 40 MG (ZOCOR) TAB PO SCH (23:07)
[2019-04-12] MEDS: PARoxetine 20 MG (PAXIL) TAB PO SCH (23:07)
[2019-04-12] MEDS: meTOprolol TARTRATE 50 MG (LOPRESSOR) TAB PO SCH (23:07)
[2019-04-13 04:00] VITALS: BP 177/74
[2019-04-13] MEDS: ENOXAPARIN 40 MG/0.4 ML (LOVENOX) SYR SC SCH ×2 (05:10→17:05)
[2019-04-13] MEDS: KCL 10 MEQ TAB (MICRO K) PO SCH ×3 (05:10→17:05)
[2019-04-13] MEDS: MULTIVIT W/MINERALS TAB (THERAGRAN M) PO SCH (05:14)
[2019-04-13 05:25] LABS: BASOPHILS % (AUTO) 1 % (0-10); EOSINOPHILS # (AUTO) 0.1 10^3/uL (0.0-0.3); EOSINOPHILS % (AUTO) 1 % (0-10); HEMATOCRIT 38 % (35-52); HEMOGLOBIN 12.8 G/DL (11.5-16.0); LYMPHOCYTES # (AUTO) 0.6 X 10^3 (1.0-4.0); LYMPHOCYTES % (AUTO) 9 % (12-44); MEAN CORPUSCULAR HEMOGLOBIN 30 PG (25-34); MEAN CORPUSCULAR HGB CONC 33 G/DL (32-36); MEAN CORPUSCULAR VOLUME 90 FL (80-99); MEAN PLATELET VOLUME 10.6 FL (7.4-10.4); MONOCYTES # (AUTO) 0.6 X 10^3 (0.0-1.0); MONOCYTES % (AUTO) 9 % (0-12); NEUTROPHILS # (AUTO) 5.6 X 10^3 (1.8-7.8); NEUTROPHILS % (AUTO) 80 % (42-75); PLATELET COUNT 141 10^3/uL (130-400); RED CELL DISTRIBUTION WIDTH 13.8 % (10.0-14.5); WHITE BLOOD COUNT 6.9 10^3/uL (4.3-11.0)
[2019-04-13 05:45] LABS: ALANINE AMINOTRANSFERASE 18 U/L (0-55); ALBUMIN 3.4 GM/DL (3.2-4.5); ALKALINE PHOSPHATASE 65 U/L (40-136); BILIRUBIN,TOTAL 0.3 MG/DL (0.1-1.0); BUN/CREATININE RATIO 11; CALCIUM 8.8 MG/DL (8.5-10.1); CARBON DIOXIDE 32 MMOL/L (21-32); CHLORIDE 96 MMOL/L (98-107); GFR ESTIMATED > 60; GLUCOSE 116 MG/DL (70-105); POTASSIUM 3.7 MMOL/L (3.6-5.0); SODIUM 133 MMOL/L (135-145)
[2019-04-13] MEDS ORDERED: NAPROXEN 250 MG (NAPROSYN) TABLET PO PRN (07:00)
[2019-04-13] MEDS ORDERED: FUROSEMIDE 40 MG/4 ML INJ (LASIX) IVP ONE (07:00)
[2019-04-13 08:00] VITALS: BP 180/82
[2019-04-13] MEDS: meTOprolol TARTRATE 50 MG (LOPRESSOR) TAB PO SCH ×2 (08:59→20:23)
[2019-04-13] MEDS: ASCORBIC ACID (VIT C) 500 MG TABLET PO SCH (08:59)
[2019-04-13] MEDS: SENNA W/DOCUSATE (SENOKOT S) TABLET PO SCH ×3 (08:59→20:27)
[2019-04-13] MEDS: ASPIRIN E.C. 81 MG (ECOTRIN) TAB PO SCH (08:59)
[2019-04-13] MEDS: amLODIPine 5 MG (NORVASC) TAB PO SCH (09:00)
[2019-04-13] MEDS ORDERED: NON-FORMULARY MEDICATION 1 EA EA (Ascorbate Calcium (Vitamin C) 500 MG) PO SCH (09:00)
[2019-04-13] MEDS: OMEGA 3 (FISH OIL) 1000 MG CAP PO SCH (09:00)
--- NOTE | 2019-04-13 09:04 | Progress Note - Hospitalist ---
Subjective HPI/CC On Admission Date Seen by Provider: Apr 13, 2019 Time Seen by Provider: 07:00 CC: Nausea vomiting with sepsis HPI: This is an 83yoWF clinic pt of Dr. Celaya who presents to the hospital ER with nausea and vomiting unable to fill her antibiotic when she was seen the night before in the ER because of the late hour and she could not manage anything more at home because of the significant nausea an vomiting. She was placed on the empiric antibiotic of Rocephin, has felt better since IV fluids initiated and is open to discontinuing the delgadillo, heplocking IV fluids since she is eating and drinking well. Initiated PT and OT, will DC telemetry and will initiate Norvasc 5mg for BP out of control. Subjective/Events-last exam Vitals are normal and stable. Does have the higher BP. Slept poorly last night. Could stay asleep Ambulating with walker well. Still complaining of weakness and uncertainty to go home. Eating and drinking well. Voiding and stooling well. Muscle soreness is still present but getting better. Review of Systems General: No Chills, No Night Sweats, No Fatigue, No Malaise, No Appetite, No Other HEENT: No Head Aches, No Visual Changes, No Eye Pain, No Ear Pain, No Dysphasia, No Sinus Congestion, No Post Nasal Drip, No Sore Throat, No Other Pulmonary: No Dyspnea, No Cough, No Pleuritic Chest Pain, No Other Cardiovascular: No: Chest Pain, Palpitations, Orthopnea, Paroxysmal Noc. Dyspnea, Edema, Lt Headedness, Other Gastrointestinal: No: Nausea, Vomiting, Abdominal Pain, Diarrhea, Constipation, Melena, Hematochezia, Other Genitourinary: No Dysuria, No Frequency, No Incontinence, No Hematuria, No Retention, No Other Musculoskeletal: No: other, neck pain, shoulder pain, arm pain, back pain, hand pain, leg pain, foot pain Neurological: No: Weakness, Numbness, Incoordination, Change in speech, Confusion, Seizures, Other Focused Exam Lactate Level 04/10/19 13:20: Lactic Acid Level 1.67 Objective Exam Vital Signs Vital Signs Date Time Temp Pulse Resp B/P (MAP) Pulse Ox O2 Delivery O2 Flow Rate FiO2 04/13/19 08:00 Room Air 04/13/19 04:00 37.5 71 20 177/74 (108) 93 04/12/19 12:00 2.00 Capillary Refill : Less Than 3 Seconds General Appearance: No Apparent Distress, WD/WN HEENT: Normal ENT Inspection, Moist Mucous Membranes Respiratory: Chest Non Tender, Lungs Clear, Normal Breath Sounds, No Accessory Muscle Use, No Respiratory Distress Cardiovascular: Regular Rate, Rhythm, No Edema, No Gallop, No JVD, No Murmur, Normal Peripheral Pulses Gastrointestinal: Normal Bowel Sounds, No Organomegaly, No Pulsatile Mass, Non Tender, Soft Neurologic/Psychiatric: Alert, Oriented x3, No Motor/Sensory Deficits, Normal Mood/Affect, laser set up operator II-XII Norm as Tested Skin: Normal Color, Warm/Dry Lymphatic: No Adenopathy Results/Procedures Lab Laboratory Tests 04/13/19 05:05 Patient resulted labs reviewed. Assessment/Plan Assessment and Plan Assess & Plan/Chief Complaint Assessment: 1. UTI 2. HTN 3. SSRI for unknown reason Plan: 1. CEFTRIAXONE for UTI management 2. Continue to give normal BP meds and monitor patient 3. Remove Delgadillo catheter 4. Maintain hydration via fluids. Clinical Quality Measures DVT/VTE Risk/Contraindication: Risk Factor Score Per Nursin RFS Level Per Nursing on Admit: 4+=Very High RAJ [facility] Apr 13, 2019 09:04
[2019-04-13] MEDS ORDERED: AMLO5TAB9 PO (10:56)
[2019-04-13] MEDS ORDERED: POTA10TA6 PO (10:56)
[2019-04-13] MEDS ORDERED: ENOX40DI8 SC (10:56)
--- NOTE | 2019-04-13 10:58 | Discharge Summary ---
Discharge Summary Reconcile Patient Problems Problems Reviewed?: Yes Hospital Course Hospital Course Date of Admission: Apr 10, 2019 at 12:39 Admission Diagnosis : Family Physician/Provider: Marti Celaya MD Date of Discharge: 04/13/19 Discharge Diagnosis: Urosepsis Labs and Pending Lab Test: Laboratory Tests 04/13/19 05:05: White Blood Count 6.9, Red Blood Count 4.28L, Hemoglobin 12.8, Hematocrit 38, Mean Corpuscular Volume 90, Mean Corpuscular Hemoglobin 30, Mean Corpuscular Hemoglobin Concent 33, Red Cell Distribution Width 13.8, Platelet Count 141, Mean Platelet Volume 10.6H, Neutrophils (%) (Auto) 80H, Lymphocytes (%) (Auto) 9L, Monocytes (%) (Auto) 9, Eosinophils (%) (Auto) 1, Basophils (%) (Auto) 1, Neutrophils # (Auto) 5.6, Lymphocytes # (Auto) 0.6L, Monocytes # (Auto) 0.6, Eosinophils # (Auto) 0.1, Basophils # (Auto) 0.0, Sodium Level 133L, Potassium Level 3.7, Chloride Level 96L, Carbon Dioxide Level 32, Anion Gap 5, Blood Urea Nitrogen 8, Creatinine 0.70, Estimat Glomerular Filtration Rate > 60, BUN/Creatinine Ratio 11, Glucose Level 116H, Calcium Level 8.8, Corrected Calcium 9.3, Total Bilirubin 0.3, Aspartate Amino Transf (AST/SGOT) 33, Alanine Aminotransferase (ALT/SGPT) 18, Alkaline Phosphatase 65, Total Protein 6.0L, Albumin 3.4 Microbiology 04/10/19 Blood Culture - Preliminary, Resulted No growth 04/10/19 Urine Culture - Final, Complete NO GROWTH Home Meds Active Enoxaparin Sodium 40 Mg/0.4 Ml Syringe 40 Mg SC Q12H 7 Days Klor-Con 10 (Potassium Chloride) 10 Meq Tablet.er 10 Meq PO WM 7 Days Amlodipine Besylate 5 Mg Tablet 5 Mg PO DAILY Reported Aleve (Naproxen Sodium) 220 Mg Tablet 220 Mg PO Q6H PRN Aspirin EC (Aspirin) 81 Mg Tablet.dr 81 Mg PO DAILY Fish Oil 1,000 mg Capsule ([place] 3 Polyunsat Fatty Acids) 1,000 Mg Cap 1,000 Mg PO DAILY Vitamin C (Ascorbate Calcium) 500 Mg Tablet 500 Mg PO DAILY Centrum Complete Multivit Tab (Multivitamin/Iron/Folic Acid) 1 Each Tablet 1 Each PO DAILY Losartan Potassium 50 Mg Tablet 50 Mg PO 1500 Paroxetine HCl 20 Mg Tablet 20 Mg PO HS Metoprolol Tartrate 50 Mg Tablet 50 Mg PO BID Simvastatin 40 Mg Tablet 40 Mg PO HS Skilled NF Admit to: [facility] Certification (SNF) I certify that SNF services are required to be given on an inpatient basis because of the above named patient's need for alf care on a continuing basis for the conditions(s) for which he/she was receiving inpatient hospital services prior to his/her transfer to the SNF. Intermediate Facility Order: Collar Cutter-Evaluate & Treat, Physical Therapy-Evaluate & Treat Oxygen Delivery Method: Room Air Discharge Diet: No Restrictions Resuscitation Status: Full Code Leah Elizabeth Apr 13, 2019 10:57 LEAH ELIZABETH DO Apr 13, 2019 10:58
[2019-04-13] MEDS ORDERED: CEFD300C3 PO (10:59)
--- NOTE | 2019-04-13 11:15 | Physical Therapy Daily Note ---
PT Daily Note-Current Subjective Pt. declines gait stating she has already walked today but would agree to Therex. Pain Location: No Pain Reported Mental Status Patient Orientation: Normal For Age Attachments: SCD's Transfers Therapy Code Descriptions/Definitions Functional [place] Measure: 0=Not Assessed/NA 4=Minimal Assistance 1=Total Assistance 5=Supervision or Setup 2=Maximal Assistance 6=Modified [place] 3=Moderate Assistance 7=Complete [place] Therapy Quality Codes: 6 Independent with activity with or without an assistive device 5 Patient requires set up or clean up by helper. Patient completes activity by themselves 4 Supervision or touching assist (CGA). [place] provide cues , steadying assist 3 The helper provides less than half the effort to complete the activity 2 The helper provides more than half the effort to complete the activity 1 Dependent. The helper does all the effort to complete an activity 7 Patient refused to complete or attempt activity 9 The patient did not perform the activity before the current illness or injury 88 Not attempted due to Medical conditions or safety concerns rolling and scooting indep Weight Bearing Right Lower Extremity: Right Weight Bearing/Tolerated Left Lower Extremity: Left Weight Bearing/Tolerated Exercises Supine Ex: Bridging, Ankle pumps, Quad Set, Rolling, Glut sets, Heel Slides, Short Arc Quads, Scooting, Straight leg raise, Hip abd/add Supine Reps: 20 Assessment Current Status: Good Progress PT [facility] Goals Cabinet Installer Goals PT [facility] Goals Time Frame: Apr 16, 2019 Transfers (B,C,W/C) (FIM): 6 Gait (FIM): 6 Gait distance (FIM): 3=150 ft Gait Level of Assist: 6 Gait Assistive Device: FWW PT Plan Treatment/Plan Treatment Plan: Continue Plan of Care Treatment Plan: Bed Mobility, Education, Functional Activity Saba, Functional Strength, Gait, Safety, Therapeutic Exercise, Transfers Treatment Duration: Apr 16, 2019 Frequency: 6 times per week Estimated Hrs Per Day: .25 hour per day Patient and/or Family Agrees t: Yes Safety Risks/Education Patient Education: Correct Positioning, Disease Process Teaching Recipient: Patient Teaching Methods: Demonstration, Discussion Response to Teaching: Verbalize Understanding, Return Demonstration Time/GCodes Time In: 1055 Time Out: 1115 Total Billed Treatment Time: 20 Total Billed Treatment 1,Ex20m MYRTLE AVILA CLINIC ADMINISTRATOR Apr 13, 2019 11:15
--- NOTE | 2019-04-13 11:57 | Discharge Summary ---
[facility] 04/13/19 1156: Discharge Summary Hospital Course Problems/Dx: (1) Sepsis Status: Acute Qualifiers: Qualified Codes: A41.9 - Sepsis, unspecified organism (2) UTI (urinary tract infection) Status: Acute Qualifiers: Qualified Codes: N30.00 - Acute cystitis without hematuria (3) Vomiting Status: Acute Qualifiers: Qualified Codes: R11.2 - Nausea with vomiting, unspecified (4) Hyponatremia Status: Acute Hospital Course Date of Admission: Apr 10, 2019 at 12:39 Admission Diagnosis : Family Physician/Provider: Marti Celaya MD Date of Discharge: 04/13/19 Discharge Diagnosis: [ ] Hospital Course: [ ]Mrs. Feng presented here with vomiting and flank pain. She was subsequently diagnosed with Urosepsis and treated with ceftriaxone. She talked about resolution of her symptoms but feels weakness still. PT/OT checked up on her and felt confident that she could successfully be discharged. Labs and Pending Lab Test: Laboratory Tests 04/13/19 05:05: White Blood Count 6.9, Red Blood Count 4.28L, Hemoglobin 12.8, Hematocrit 38, Mean Corpuscular Volume 90, Mean Corpuscular Hemoglobin 30, Mean Corpuscular Hemoglobin Concent 33, Red Cell Distribution Width 13.8, Platelet Count 141, Mean Platelet Volume 10.6H, Neutrophils (%) (Auto) 80H, Lymphocytes (%) (Auto) 9L, Monocytes (%) (Auto) 9, Eosinophils (%) (Auto) 1, Basophils (%) (Auto) 1, Neutrophils # (Auto) 5.6, Lymphocytes # (Auto) 0.6L, Monocytes # (Auto) 0.6, Eosinophils # (Auto) 0.1, Basophils # (Auto) 0.0, Sodium Level 133L, Potassium Level 3.7, Chloride Level 96L, Carbon Dioxide Level 32, Anion Gap 5, Blood Urea Nitrogen 8, Creatinine 0.70, Estimat Glomerular Filtration Rate > 60, BUN/Creatinine Ratio 11, Glucose Level 116H, Calcium Level 8.8, Corrected Ca lcium 9.3, Total Bilirubin 0.3, Aspartate Amino Transf (AST/SGOT) 33, Alanine Aminotransferase (ALT/SGPT) 18, Alkaline Phosphatase 65, Total Protein 6.0L, Albumin 3.4 Microbiology 04/10/19 Blood Culture - Preliminary, Resulted No growth 04/10/19 Urine Culture - Final, Complete NO GROWTH Home Meds Active Cefdinir 300 Mg Capsule 300 Mg PO BID Enoxaparin Sodium 40 Mg/0.4 Ml Syringe 40 Mg SC Q12H 7 Days Klor-Con 10 (Potassium Chloride) 10 Meq Tablet.er 10 Meq PO WM 7 Days Amlodipine Besylate 5 Mg Tablet 5 Mg PO DAILY Reported Aleve (Naproxen Sodium) 220 Mg Tablet 220 Mg PO Q6H PRN Aspirin EC (Aspirin) 81 Mg Tablet.dr 81 Mg PO DAILY Fish Oil 1,000 mg Capsule ([place] 3 Polyunsat Fatty Acids) 1,000 Mg Cap 1,000 Mg PO DAILY Vitamin C (Ascorbate Calcium) 500 Mg Tablet 500 Mg PO DAILY Centrum Complete Multivit Tab (Multivitamin/Iron/Folic Acid) 1 Each Tablet 1 Each PO DAILY Losartan Potassium 50 Mg Tablet 50 Mg PO 1500 Paroxetine HCl 20 Mg Tablet 20 Mg PO HS Metoprolol Tartrate 50 Mg Tablet 50 Mg PO BID Simvastatin 40 Mg Tablet 40 Mg PO HS Assessment/Pt Instructions Assessment: 1. Urosepsis resolved. No presence of symptoms that brought her in. Voiding without pain. 2. Finish course of antibiotics. 3. Weakness while ambulating Used walker while ambulating until strength is fully regained. Fully finish all antibiotics given upon discharge. Any questions call the hospital. Discharge Planning: <30 minutes discharge planning Discharge Instructions Discharge Diet: No Restrictions Activity as Tolerated: Yes Discharge Physical Examination Vital Signs Vital Signs Date Time Temp Pulse Resp B/P (MAP) Pulse Ox O2 Delivery O2 Flow Rate FiO2 04/13/19 08:00 Room Air 04/13/19 04:00 37.5 71 20 177/74 (108) 93 04/12/19 12:00 2.00 General Appearance: No Apparent Distress, WD/WN HEENT: Normal ENT Inspection, Moist Mucous Membranes Respiratory: Lungs Clear, Normal Breath Sounds, No Accessory Muscle Use, No Respiratory Distress Cardiovascular: Regular Rate, Rhythm, No Edema, No Gallop, No JVD, No Murmur, Normal Peripheral Pulses Extremity: Normal Capillary Refill, Non Tender, No Calf Tenderness, No Pedal Edema Skin: Normal Color, Warm/Dry Neurologic/Psychiatric: Alert, Oriented x3, No Motor/Sensory Deficits, Normal Mood/Affect, health information specialist II-XII Norm as Tested Allergies: Coded Allergies: No Known Drug Allergies (Unverified , 04/10/19) Discharge Summary Date of Admission Apr 10, 2019 at 12:39 Date of Discharge Discharge Date: Apr 13, 2019 Admission Diagnosis Assessment: Sepsis UTI N/V HTN OOC Plan: ABx HLIVF DC Tely Discharge Diagnosis Assessment: 1. UTI 2. HTN 3. SSRI for unknown reason Plan: 1. CEFTRIAXONE for UTI management 2. Continue to give normal BP meds and monitor patient 3. Remove Wallace catheter 4. Maintain hydration via fluids. (1) Sepsis Status: Acute Qualifiers: Qualified Codes: A41.9 - Sepsis, unspecified organism (2) UTI (urinary tract infection) Status: Acute Qualifiers: Qualified Codes: N30.00 - Acute cystitis without hematuria (3) Vomiting Status: Acute Qualifiers: Qualified Codes: R11.2 - Nausea with vomiting, unspecified (4) Hyponatremia Status: Acute Clinical Quality Measures DVT/VTE Risk/Contraindication: Risk Factor Score Per Nursin RFS Level Per Nursing on Admit: 4+=Very High LEAH BARON DO 04/13/192045: Discharge Summary Hospital Course Hospital Course Hospital Course: Pt had an eventful four day hospital course. She was admitted for sepsis and UTI placed empirically on Rocephin and IV fluids. Elevated BP managed with additional medications and once nausea and vomiting had resolved home meds were restarted. Physical therapy was then able to work with her although weakness and fear of falling was an issue so pt was converted from IV antibiotics to oral antibiotics and was planned for DC with home health or swing bed depending on approval. Discharge Physical Examination Allergies: Coded Allergies: No Known Drug Allergies (Unverified , 04/10/19) Supervisory-Addendum Brief Verification & Attestation Participated in pt care: history, MDM, physical Personally performed: exam, history, MDM, supervision of care Care discussed with: Medical Student Procedures: n/a Results interpretation: Verified all documentation Verification and Attestation of Medical Student E/M Service A medical student performed and documented this service in my presence. I reviewed and verified all information documented by the medical student and made modifications to such information, when appropriate. I personally performed the physical exam and medical decision making. Leah Baron, Apr 13, 2019,20:46 [facility] Apr 13, 2019 11:56 LEAH BARON DO Apr 13, 2019 20:46
[2019-04-13 12:00] VITALS: BP 152/80
[2019-04-13] MEDS: cefTRIAXone FOR IV USE 1,000 MG in WATER (STERILE) FOR INJECTION 10 ML IV SCH (12:45)
[2019-04-13] MEDS ORDERED: NON-FORMULARY MEDICATION 1 EA EA (Losartan Potassium 50 MG) PO SCH (15:00)
--- NOTE | 2019-04-13 15:30 | NUR ---
CM/SS, respond to consult, summary. SWB: Referral completed with [facility] SWB, coordinator indicated patient did not have qualifying criteria. IRF: Referral completed, did not meet criteria, see EMR progress note. Reviewed therapy notes indicating patient could ambulate in hallways independently PRN. Interviewed patient about returning home, she was disappointed she was not accepted to either unit. Explored family support with patient, she indicated she would speak with her daughters and get a plan in place. Followup tomorrow.
[2019-04-13] MEDS: LOSARTAN 50 MG (COZAAR) TAB PO SCH ×2 (16:00→17:03)
[2019-04-13 16:17] VITALS: BP 180/70
[2019-04-13 19:31] VITALS: BP 175/80
[2019-04-13] MEDS: MELATONIN 3 MG TABLET PO PRN (20:23)
[2019-04-13] MEDS: SIMvastatin 40 MG (ZOCOR) TAB PO SCH (20:23)
[2019-04-13] MEDS: ONDANSETRON 4 MG/2 ML (SDV) Z0FRAN IV PRN (20:23)
[2019-04-13] MEDS: PARoxetine 20 MG (PAXIL) TAB PO SCH (20:23)
[2019-04-13] MEDS ORDERED: cloNIDine 0.1 MG (CATAPRES) TAB PO PRN (21:00)
[2019-04-13 23:39] VITALS: BP 200/85
[2019-04-14] VITALS (7 sets, daily range): BP systolic 94–210; BP diastolic 55–90
[2019-04-14] MEDS: NITROGLYCERIN 2% OINT 1 GM UNIT DOSE PACKET TOP PRN (02:05)
[2019-04-14] MEDS: hydrALAZINE (APESOLINE) 20 MG/ML VIAL IV PRN (04:01)
[2019-04-14] MEDS: ONDANSETRON 4 MG/2 ML (SDV) Z0FRAN IV PRN (04:01)
[2019-04-14] MEDS: ENOXAPARIN 40 MG/0.4 ML (LOVENOX) SYR SC SCH ×2 (04:07→17:01)
[2019-04-14] MEDS: MULTIVIT W/MINERALS TAB (THERAGRAN M) PO SCH (05:44)
[2019-04-14] MEDS: KCL 10 MEQ TAB (MICRO K) PO SCH ×4 (05:45→17:01)
[2019-04-14 06:27] LABS: BASOPHILS % (AUTO) 0 % (0-10); EOSINOPHILS % (AUTO) 0 % (0-10); HEMATOCRIT 40 % (35-52); HEMOGLOBIN 14.1 G/DL (11.5-16.0); LYMPHOCYTES # (AUTO) 1.1 X 10^3 (1.0-4.0); LYMPHOCYTES % (AUTO) 13 % (12-44); MEAN CORPUSCULAR HEMOGLOBIN 30 PG (25-34); MEAN CORPUSCULAR HGB CONC 35 G/DL (32-36); MEAN CORPUSCULAR VOLUME 87 FL (80-99); MEAN PLATELET VOLUME 11.8 FL (7.4-10.4); MONOCYTES # (AUTO) 0.8 X 10^3 (0.0-1.0); MONOCYTES % (AUTO) 9 % (0-12); NEUTROPHILS # (AUTO) 6.5 X 10^3 (1.8-7.8); NEUTROPHILS % (AUTO) 78 % (42-75); PLATELET COUNT 149 10^3/uL (130-400); WHITE BLOOD COUNT 8.4 10^3/uL (4.3-11.0)
[2019-04-14 06:50] LABS: ALANINE AMINOTRANSFERASE 21 U/L (0-55); ALBUMIN 3.9 GM/DL (3.2-4.5); ALKALINE PHOSPHATASE 66 U/L (40-136); BILIRUBIN,TOTAL 0.5 MG/DL (0.1-1.0); BUN/CREATININE RATIO 11; CARBON DIOXIDE 29 MMOL/L (21-32); CHLORIDE 87 MMOL/L (98-107); CREATININE SERUM 0.63 MG/DL (0.60-1.30); GFR ESTIMATED > 60; GLUCOSE 116 MG/DL (70-105); POTASSIUM 3.1 MMOL/L (3.6-5.0); SODIUM 128 MMOL/L (135-145); TOTAL PROTEIN 6.9 GM/DL (6.4-8.2)
[2019-04-14] MEDS ORDERED: FUROSEMIDE 40 MG/4 ML INJ (LASIX) IVP NR (09:15)
[2019-04-14] MEDS: OMEGA 3 (FISH OIL) 1000 MG CAP PO SCH (09:28)
[2019-04-14] MEDS: meTOprolol TARTRATE 50 MG (LOPRESSOR) TAB PO SCH ×2 (09:28→20:20)
[2019-04-14] MEDS: amLODIPine 10 MG (NORVASC) TAB PO SCH (09:29)
[2019-04-14] MEDS: ASPIRIN E.C. 81 MG (ECOTRIN) TAB PO SCH (09:29)
[2019-04-14] MEDS: ASCORBIC ACID (VIT C) 500 MG TABLET PO SCH (09:29)
[2019-04-14] MEDS: SENNA W/DOCUSATE (SENOKOT S) TABLET PO SCH ×2 (09:30→20:20)
[2019-04-14] MEDS ORDERED: AMLO10TA7 PO (09:42)
[2019-04-14] MEDS ORDERED: CLON0.1T PO (09:42)
--- NOTE | 2019-04-14 11:29 | Progress Note - Hospitalist ---
RA[facility] ALLEN [facility] 04/14/19 1129: Subjective HPI/CC On Admission Date Seen by Provider: Apr 14, 2019 Time Seen by Provider: 10:30 CC: Nausea vomiting with sepsis HPI: This is an 83yoWF clinic pt of Dr. Celaya who presents to the hospital ER with nausea and vomiting unable to fill her antibiotic when she was seen the night before in the ER because of the late hour and she could not manage anything more at home because of the significant nausea an vomiting. She was placed on the empiric antibiotic of Rocephin, has felt better since IV fluids initiated and is open to discontinuing the delgadillo, heplocking IV fluids since she is eating and drinking well. Initiated PT and OT, will DC telemetry and will initiate Norvasc 5mg for BP out of control. Subjective/Events-last exam Vitals are normal and stable. Slept poorly last night. Couldn't fall asleep and interrupted. Voiding well and having diarrhea. Appetite is decreased and on fluid restrictions. Patient complains N/V. She has muscle soreness of the rib cage from emesis. Review of Systems General: No Chills, No Night Sweats, No Fatigue, No Malaise, No Appetite, No Other HEENT: No Head Aches, No Visual Changes, No Eye Pain, No Ear Pain, No Dysphasia, No Sinus Congestion, No Post Nasal Drip, No Sore Throat, No Other Pulmonary: No Dyspnea, No Cough, No Pleuritic Chest Pain, No Other Cardiovascular: No: Chest Pain, Palpitations, Orthopnea, Paroxysmal Noc. Dyspnea, Edema, Lt Headedness, Other Gastrointestinal: Nausea, Vomiting, Diarrhea; No: Abdominal Pain, Constipation, Melena, Hematochezia, Other Genitourinary: No Dysuria, No Frequency, No Incontinence, No Hematuria, No Re tention, No Other Musculoskeletal: No: other, neck pain, shoulder pain, arm pain, back pain, hand pain, leg pain, foot pain Neurological: No: Weakness, Numbness, Incoordination, Change in speech, Confusion, Seizures, Other Objective Exam Vital Signs Vital Signs Date Time Temp Pulse Resp B/P (MAP) Pulse Ox O2 Delivery O2 Flow Rate FiO2 04/14/19 08:00 70 18 200/70 (113) 90 Room Air 04/14/19 03:45 36.8 04/12/19 12:00 2.00 Capillary Refill : Less Than 3 Seconds General Appearance: WD/WN, Mild Distress HEENT: Normal ENT Inspection, Moist Mucous Membranes Neck: Non Tender, Supple Respiratory: No Accessory Muscle Use, No Respiratory Distress, Crackles (Lower base b/l heard ) Cardiovascular: Regular Rate, Rhythm, No Edema, No Gallop, No JVD, No Murmur, Normal Peripheral Pulses Gastrointestinal: Normal Bowel Sounds, Non Tender, Soft, Tenderness (LLQ ) Back: Normal Inspection, No CVA Tenderness, No Vertebral Tenderness Extremity: Normal Capillary Refill, Normal Inspection, Normal Range of Motion, Non Tender, No Calf Tenderness, No Pedal Edema Neurologic/Psychiatric: Alert, Oriented x3, No Motor/Sensory Deficits, Normal Mood/Affect, parking manager II-XII Norm as Tested Skin: Normal Color, Warm/Dry Lymphatic: No Adenopathy Results/Procedures Lab Laboratory Tests 04/14/19 05:23 Patient resulted labs reviewed. Assessment/Plan Assessment and Plan Assess & Plan/Chief Complaint Assessment: 1. UTI 2. HTN 3. SSRI for unknown reason Plan: 1. CEFTRIAXONE for UTI management 2. Continue to give normal BP meds and monitor patient 3. Remove Delgadillo catheter 4. Maintain hydration via fluids. Diagnosis/Problems Diagnosis/Problems (1) Sepsis Status: Acute Qualifiers: Qualified Codes: A41.9 - Sepsis, unspecified organism (2) UTI (urinary tract infection) Status: Acute Qualifiers: Qualified Codes: N30.00 - Acute cystitis without hematuria (3) Vomiting Status: Acute Qualifiers: Qualified Codes: R11.2 - Nausea with vomiting, unspecified (4) Hyponatremia Status: Acute Clinical Quality Measures DVT/VTE Risk/Contraindication: Risk Factor Score Per Nursin RFS Level Per Nursing on Admit: 4+=Very High LEAH BARON DO 04/14/192057: Subjective Subjective/Events-last exam Pt was held from discharge due to her inability of being comfortable leaving the hospital from home. She continues to have extremely elevated blood pressure which could have to do with the IV fluid I had given her so I am diuresing her. Multiple BP meds have been given. Hyponatremia now at 128, will fluid restrict her at 1000 and the hold the discharge again today. She did not meet criteria for swingbed and we will continue on acute med floor until her BP is more controlled today and able to be discharged home. Assessment/Plan Assessment and Plan Assess & Plan/Chief Complaint Increase BP meds Fluid restriction Check sodium and potassium levels in morning Diagnosis/Problems Diagnosis/Problems (1) Sepsis Status: Acute Qualifiers: Qualified Codes: A41.9 - Sepsis, unspecified organism (2) UTI (urinary tract infection) Status: Acute Qualifiers: Qualified Codes: N30.00 - Acute cystitis without hematuria (3) Vomiting Status: Acute Qualifiers: Qualified Codes: R11.2 - Nausea with vomiting, unspecified (4) Hyponatremia Status: Acute Supervisory-Addendum Brief Verification & Attestation Participated in pt care: history, MDM, physical Personally performed: exam, history, MDM, supervision of care Care discussed with: Medical Student Procedures: n/a Results interpretation: Verified all documentation Verification and Attestation of Medical Student E/M Service A medical student performed and documented this service in my presence. I reviewed and verified all information documented by the medical student and made modifications to such information, when appropriate. I personally performed the physical exam and medical decision making. Leah Baron, Apr 14, 2019,20:58 [facility] Apr 14, 2019 11:29 LEAH BARON DO Apr 14, 2019 20:58
--- NOTE | 2019-04-14 11:50 | Physical Therapy Daily Note ---
PT Daily Note-Current Subjective Patient agrees to PT. Noted increase in confusion/lethargy. Per RN, patient NA levels are low. Pain Numeric Pain Scale: 0-No Pain Location: No Pain Reported Mental Status Patient Orientation: Person, Time Transfers Therapy Code Descriptions/Definitions Functional Lavinia Measure: 0=Not Assessed/NA 4=Minimal Assistance 1=Total Assistance 5=Supervision or Setup 2=Maximal Assistance 6=Modified Lavinia 3=Moderate Assistance 7=Complete Lavinia Therapy Quality Codes: 6 Independent with activity with or without an assistive device 5 Patient requires set up or clean up by helper. Patient completes activity by themselves 4 Supervision or touching assist (CGA). [place] provide cues , steadying assist 3 The helper provides less than half the effort to complete the activity 2 The helper provides more than half the effort to complete the activity 1 Dependent. The helper does all the effort to complete an activity 7 Patient refused to complete or attempt activity 9 The patient did not perform the activity before the current illness or injury 88 Not attempted due to Medical conditions or safety concerns Transfers (B, C, W/C) (FIM): 6 Scootin Rollin Supine to/from Sit: 6 Sit to/from Stand: 6 Bed to/from Chair: 6 Weight Bearing Right Lower Extremity: Right Weight Bearing/Tolerated Left Lower Extremity: Left Weight Bearing/Tolerated Gait Training Gait (FIM): 6 Distance (FIM): 3=150 ft Distance: 275' Gait Level of Assist: 6 Gait Assistive Device: FWW very slow, steady gait sequence with extended UE's with FWW use and VC's for body placement in FWW Exercises Seated Therapy Exercises: Ankle pumps, Long arc quads, Hip flexion Seated Reps: 15 (2 sets) Assessment Patient is up in recliner with needs met and call light in hand. Noted rash right gluteal/side region with RN assessing. PT Senior Living Goals Senior Living Goals PT Senior Living Goals Time Frame: Apr 16, 2019 Transfers (B,C,W/C) (FIM): 6 Gait (FIM): 6 Gait distance (FIM): 3=150 ft Gait Level of Assist: 6 Gait Assistive Device: FWW PT Plan Treatment/Plan Treatment Plan: Continue Plan of Care Treatment Plan: Bed Mobility, Education, Functional Activity Saba, Functional Strength, Gait, Safety, Therapeutic Exercise, Transfers Treatment Duration: Apr 16, 2019 Frequency: 6 times per week Estimated Hrs Per Day: .25 hour per day Patient and/or Family Agrees t: Yes Time/GCodes Time In: 1120 Time Out: 1133 Total Billed Treatment Time: 13 Total Billed Treatment 1 visit FA 13 min ALO RAMIREZ PT Apr 14, 2019 11:50
[2019-04-14] MEDS: cefTRIAXone FOR IV USE 1,000 MG in WATER (STERILE) FOR INJECTION 10 ML IV SCH (12:28)
[2019-04-14] MEDS: LOSARTAN 50 MG (COZAAR) TAB PO SCH ×2 (14:07→14:42)
[2019-04-14] MEDS ORDERED: VALACYCLOVIR 500 MG TAB (VALTREX) PO SCH (17:00)
[2019-04-14] MEDS: VALACYCLOVIR 500 MG TAB (VALTREX) PO SCH ×2 (17:01→20:20)
[2019-04-14] MEDS: MELATONIN 3 MG TABLET PO PRN (20:20)
[2019-04-14] MEDS: PARoxetine 20 MG (PAXIL) TAB PO SCH (20:20)
[2019-04-15] VITALS: BP 107/62
[2019-04-15 04:04] VITALS: BP 112/53
[2019-04-15 04:59] LABS: BASOPHILS % (AUTO) 0 % (0-10); EOSINOPHILS # (AUTO) 0.2 10^3/uL (0.0-0.3); EOSINOPHILS % (AUTO) 3 % (0-10); HEMATOCRIT 39 % (35-52); HEMOGLOBIN 13.3 G/DL (11.5-16.0); LYMPHOCYTES # (AUTO) 0.8 X 10^3 (1.0-4.0); LYMPHOCYTES % (AUTO) 10 % (12-44); MEAN CORPUSCULAR HEMOGLOBIN 30 PG (25-34); MEAN CORPUSCULAR HGB CONC 34 G/DL (32-36); MEAN CORPUSCULAR VOLUME 88 FL (80-99); MEAN PLATELET VOLUME 10.5 FL (7.4-10.4); MONOCYTES # (AUTO) 0.8 X 10^3 (0.0-1.0); MONOCYTES % (AUTO) 10 % (0-12); NEUTROPHILS # (AUTO) 6.1 X 10^3 (1.8-7.8); NEUTROPHILS % (AUTO) 77 % (42-75); PLATELET COUNT 162 10^3/uL (130-400); RED CELL DISTRIBUTION WIDTH 13.4 % (10.0-14.5)
[2019-04-15] MEDS: MULTIVIT W/MINERALS TAB (THERAGRAN M) PO SCH (05:02)
[2019-04-15] MEDS: ENOXAPARIN 40 MG/0.4 ML (LOVENOX) SYR SC SCH (05:02)
[2019-04-15] MEDS: KCL 10 MEQ TAB (MICRO K) PO SCH ×2 (05:02→12:30)
[2019-04-15 05:19] LABS: ALBUMIN 3.5 GM/DL (3.2-4.5); BILIRUBIN,TOTAL 0.4 MG/DL (0.1-1.0); CALCIUM 9.2 MG/DL (8.5-10.1); CREATININE SERUM 1.2 MG/DL (0.60-1.30); POTASSIUM 4.4 MMOL/L (3.6-5.0); TOTAL PROTEIN 6.1 GM/DL (6.4-8.2)
[2019-04-15 08:00] VITALS: BP 118/69
--- NOTE | 2019-04-15 08:36 | Progress Note - Hospitalist ---
RAJ ALLEN [facility] 04/15/19 0836: Subjective HPI/CC On Admission Date Seen by Provider: Apr 15, 2019 Time Seen by Provider: 08:00 CC: Nausea vomiting with sepsis HPI: This is an 83yoWF clinic pt of Dr. Celaya who presents to the hospital ER with nausea and vomiting unable to fill her antibiotic when she was seen the night before in the ER because of the late hour and she could not manage anything more at home because of the significant nausea an vomiting. She was placed on the empiric antibiotic of Rocephin, has felt better since IV fluids initiated and is open to discontinuing the delgadillo, heplocking IV fluids since she is eating and drinking well. Initiated PT and OT, will DC telemetry and will initiate Norvasc 5mg for BP out of control. Subjective/Events-last exam Vitals are normal and stable. Slept better last night. Improving with her stay. Appetite is still poor, but drinking without issue. Voiding well. Stooling ok. Still mentioning diarrhea. No more vomiting since yesterday. Nausea with eating. But doesn't last long. Shingles affecting her right buttocks. Review of Systems General: No Chills, No Night Sweats, No Fatigue, No Malaise, No Appetite, No Other HEENT: No Head Aches, No Visual Changes, No Eye Pain, No Ear Pain, No Dysphasia, No Sinus Congestion, No Post Nasal Drip, No Sore Throat, No Other Pulmonary: No Dyspnea, No Cough, No Pleuritic Chest Pain, No Other Cardiovascular: No: Chest Pain, Palpitations, Orthopnea, Paroxysmal Noc. Dyspnea, Edema, Lt Headedness, Other Gastrointestinal: Nausea, Vomiting; No: Abdominal Pain, Diarrhea, Constipation, Melena, Hematochezia, Other Genitourinary: No Dysuria, No Frequency, No Incontinence, No Hematuria, No Retention, No Other Musculoskeletal: back pain (Shingles ); No: other, neck pain, shoulder pain, arm pain, hand pain, leg pain, foot pain Neurological: No: Weakness, Numbness, Incoordination, Change in speech, Confusion, Seizures, Other Objective Exam Vital Signs Vital Signs Date Time Temp Pulse Resp B/P (MAP) Pulse Ox O2 Delivery O2 Flow Rate FiO2 04/15/19 04:04 36.8 63 16 112/53 (72) 90 Room Air 04/14/19 08:00 2.00 Capillary Refill : Less Than 3 Seconds General Appearance: No Apparent Distress, WD/WN HEENT: Normal ENT Inspection, Moist Mucous Membranes Neck: Non Tender, Supple Respiratory: Chest Non Tender, Lungs Clear, Normal Breath Sounds, No Accessory Muscle Use, No Respiratory Distress Cardiovascular: Regular Rate, Rhythm, No Edema, No Gallop, No JVD, No Murmur, Normal Peripheral Pulses Gastrointestinal: Normal Bowel Sounds, No Organomegaly, No Pulsatile Mass, Non Tender, Soft Extremity: Normal Capillary Refill, Normal Inspection, Non Tender, No Calf Tenderness, No Pedal Edema Neurologic/Psychiatric: Alert, Oriented x3, No Motor/Sensory Deficits, Normal Mood/Affect, info specialist II-XII Norm as Tested Skin: Normal Color, Warm/Dry Lymphatic: No Adenopathy Results/Procedures Lab Laboratory Tests 04/15/19 04:35 Patient resulted labs reviewed. Assessment/Plan Assessment and Plan Assess & Plan/Chief Complaint Assessment: 1. UTI 2. HTN 3. SSRI for unknown reason Plan: 1. CEFTRIAXONE for UTI management 2. Continue to give normal BP meds and monitor patient 3. Remove Delgadillo catheter 4. Maintain hydration via fluids. Diagnosis/Problems Diagnosis/Problems (1) Sepsis Status: Acute Qualifiers: Qualified Codes: A41.9 - Sepsis, unspecified organism (2) UTI (urinary tract infection) Status: Acute Qualifiers: Qualified Codes: N30.00 - Acute cystitis without hematuria (3) Vomiting Status: Acute Qualifiers: Qualified Codes: R11.2 - Nausea with vomiting, unspecified (4) Hyponatremia Status: Acute Clinical Quality Measures DVT/VTE Risk/Contraindication: Risk Factor Score Per Nursin RFS Level Per Nursing on Admit: 4+=Very High LEAH BARON DO 04/16/19 1256: Supervisory-Addendum Brief Verification & Attestation Participated in pt care: history, MDM, physical Personally performed: exam, history, MDM, supervision of care Care discussed with: Medical Student Procedures: n/a Results interpretation: Verified all documentation Verification and Attestation of Medical Student E/M Service A medical student performed and documented this service in my presence. I reviewed and verified all information documented by the medical student and made modifications to such information, when appropriate. I personally performed the physical exam and medical decision making. Leah Baron, Apr 16, 2019,12:56 [facility] ALLEN [facility] Apr 15, 2019 08:36 LEAH BARON DO Apr 16, 2019 12:56
[2019-04-15] MEDS: ASPIRIN E.C. 81 MG (ECOTRIN) TAB PO SCH (09:40)
[2019-04-15] MEDS: amLODIPine 10 MG (NORVASC) TAB PO SCH (09:40)
[2019-04-15] MEDS: ASCORBIC ACID (VIT C) 500 MG TABLET PO SCH (09:40)
[2019-04-15] MEDS: meTOprolol TARTRATE 50 MG (LOPRESSOR) TAB PO SCH (09:41)
[2019-04-15] MEDS: SENNA W/DOCUSATE (SENOKOT S) TABLET PO SCH (09:41)
[2019-04-15] MEDS: OMEGA 3 (FISH OIL) 1000 MG CAP PO SCH (09:41)
[2019-04-15] MEDS: VALACYCLOVIR 500 MG TAB (VALTREX) PO SCH ×2 (09:41→14:29)
[2019-04-15] MEDS ORDERED: VALA500T4 PO (09:49)
[2019-04-15] MEDS ORDERED: ACHD5005 PO (09:49)
[2019-04-15] MEDS ORDERED: POTA10TA36 PO (09:49)
--- NOTE | 2019-04-15 13:41 | Discharge Summary ---
Discharge Summary Reconcile Patient Problems Problems Reviewed?: Yes Hospital Course Hospital Course Date of Admission: Apr 10, 2019 at 12:39 Admission Diagnosis : Family Physician/Provider: Marti Celaya MD Date of Discharge: 04/15/19 Discharge Diagnosis: Debility, shingles pain acute, HTN labile status, s/p UTI, N/V Labs and Pending Lab Test: Laboratory Tests 04/15/19 04:35: White Blood Count 8.0, Red Blood Count 4.45, Hemoglobin 13.3, Hematocrit 39, Mean Corpuscular Volume 88, Mean Corpuscular Hemoglobin 30, Mean Corpuscular Hemoglobin Concent 34, Red Cell Distribution Width 13.4, Platelet Count 162, Mean Platelet Volume 10.5H, Neutrophils (%) (Auto) 77H, Lymphocytes (%) (Auto) 10L, Monocytes (%) (Auto) 10, Eosinophils (%) (Auto) 3, Basophils (%) (Auto) 0, Neutrophils # (Auto) 6.1, Lymphocytes # (Auto) 0.8L, Monocytes # (Auto) 0.8, Eosinophils # (Auto) 0.2, Basophils # (Auto) 0.0, Sodium Level 130L, Potassium Level 4.4, Chloride Level 90L, Carbon Dioxide Level 30, Anion Gap 10, Blood Urea Nitrogen 19H, Creatinine 1.20, Estimat Glomerular Filtration Rate 43, BUN/Creatinine Ratio 16, Glucose Level 106H, Calcium Level 9.2, Corrected Calcium 9.6, Total Bilirubin 0.4, Aspartate Amino Transf (AST/SGOT) 38H, Alanine Aminotransferase (ALT/SGPT) 27, Alkaline Phosphatase 69, Total Protein 6.1L, Albumin 3.5 Microbiology 04/10/19 Blood Culture - Preliminary, Resulted No growth 04/10/19 Urine Culture - Final, Complete NO GROWTH Home Meds Active Potassium Chloride 10 Meq Tab.er.prt 10 Meq PO DAILY Hydrocodone/Acetaminophen 5/325mg Tablet (Acetaminophen/Hydrocodone Bitart) 1 Tab Tab 1 Tab PO Q4H PRN Valtrex (Valacyclovir HCl) 500 Mg Tablet 1,000 Mg PO TID Amlodipine Besylate 10 Mg Tablet 10 Mg PO DAILY Clonidine HCl 0.1 Mg Tablet 0.1 Mg PO TID Cefdinir 300 Mg Capsule 300 Mg PO BID Reported Aleve (Naproxen Sodium) 220 Mg Tablet 220 Mg PO Q6H PRN Aspirin EC (Aspirin) 81 Mg Tablet.dr 81 Mg PO DAILY Fish Oil 1,000 mg Capsule ([place] 3 Polyunsat Fatty Acids) 1,000 Mg Cap 1,000 Mg PO DAILY Vitamin C (Ascorbate Calcium) 500 Mg Tablet 500 Mg PO DAILY Centrum Complete Multivit Tab (Multivitamin/Iron/Folic Acid) 1 Each Tablet 1 Each PO DAILY Losartan Potassium 50 Mg Tablet 50 Mg PO 1500 Paroxetine HCl 20 Mg Tablet 20 Mg PO HS Metoprolol Tartrate 50 Mg Tablet 50 Mg PO BID Simvastatin 40 Mg Tablet 40 Mg PO HS Instructions to Patient/Family Assessment/Instructions Admit to KRYSTIAN Guajardo to [facility] service Follow Up Appt.: [facility] 1 week Skilled NF Admit to: Certification (SNF) I certify that SNF services are required to be given on an inpatient basis because of the above named patient's need for halfway care on a continuing basis for the conditions(s) for which he/she was receiving inpatient hospital services prior to his/her transfer to the SNF. [facility] Facility Order: Nursing Services, Facility Technician-Evaluate & Treat, Physical Therapy-Evaluate & Treat Oxygen Delivery Method: Room Air Discharge Diet: No Restrictions Resuscitation Status: Full Code Leah Elizabeth Apr 15, 2019 13:39 Discharge Physical Exam General: Alert, Oriented X3, Cooperative Lungs: Clear to Auscultation Heart: Regular Rate Neuro: Normal Gait, Normal Speech, Strength at 5/5 X4 Ext Psych/Mental Status: Mental Status NL, Mood NL LEAH ELIZABETH DO Apr 15, 2019 13:41
--- NOTE | 2019-04-15 13:43 | Discharge Summary ---
Discharge Summary Hospital Course Was the Problem List Reviewed?: Yes Problems/Dx: (1) Sepsis Status: Acute Qualifiers: Qualified Codes: A41.9 - Sepsis, unspecified organism (2) UTI (urinary tract infection) Status: Acute Qualifiers: Qualified Codes: N30.00 - Acute cystitis without hematuria (3) Vomiting Status: Acute Qualifiers: Qualified Codes: R11.2 - Nausea with vomiting, unspecified (4) Hyponatremia Status: Acute Hospital Course Date of Admission: Apr 10, 2019 at 12:39 Admission Diagnosis : Family Physician/Provider: Marti Celaya MD Date of Discharge: 04/15/19 Discharge Diagnosis: UTI, sepsis, debility, acute outbreak of herpes zoster right flank, hypertension [id number] malignant type Hospital Course: Patient had a complicated and lengthy hospital course after she was admitted for UTI placed on empiric antibiotics and IV fluids were given for the elevated lactic acid due to sepsis. Malignant hypertension continue through the entire hospital course finely attaining good control at time of discharge. PT and OT were consulted. She was assessed to not be in inpatient rehabilitation candidate or swing bed candidate since she was back to her baseline activity. UTI will be completing treatment with antibiotics. Acute outbreak of herpes zoster was managed with Valtrex 1000 mg 3 times a day. Her overall status appeared to be declined since she reluctantly agreed to go to the intermediate at [facility] in [place] and those orders were placed. Labs and Pending Lab Test: Laboratory Tests 04/15/19 04:35: White Blood Count 8.0, Red Blood Count 4.45, Hemoglobin 13.3, Hematocrit 39, Mean Corpuscular Volume 88, Mean Corpuscular Hemoglobin 30, Mean Corpuscular Hemoglobin Concent 34, Red Cell Distribution Width 13.4, Platelet Count 162, Mean Platelet Volume 10.5H, Neutrophils (%) (Auto) 77H, Lymphocytes (%) (Auto) 1 0L, Monocytes (%) (Auto) 10, Eosinophils (%) (Auto) 3, Basophils (%) (Auto) 0, Neutrophils # (Auto) 6.1, Lymphocytes # (Auto) 0.8L, Monocytes # (Auto) 0.8, Eosinophils # (Auto) 0.2, Basophils # (Auto) 0.0, Sodium Level 130L, Potassium Level 4.4, Chloride Level 90L, Carbon Dioxide Level 30, Anion Gap 10, Blood Urea Nitrogen 19H, Creatinine 1.20, Estimat Glomerular Filtration Rate 43, BUN/Creatinine Ratio 16, Glucose Level 106H, Calcium Level 9.2, Corrected Calcium 9.6, Total Bilirubin 0.4, Aspartate Amino Transf (AST/SGOT) 38H, Alanine Aminotransferase (ALT/SGPT) 27, Alkaline Phosphatase 69, Total Protein 6.1L, Albumin 3.5 Microbiology 04/10/19 Blood Culture - Preliminary, Resulted No growth 04/10/19 Urine Culture - Final, Complete NO GROWTH Home Meds Active Potassium Chloride 10 Meq Tab.er.prt 10 Meq PO DAILY Hydrocodone/Acetaminophen 5/325mg Tablet (Acetaminophen/Hydrocodone Bitart) 1 Tab Tab 1 Tab PO Q4H PRN Valtrex (Valacyclovir HCl) 500 Mg Tablet 1,000 Mg PO TID Amlodipine Besylate 10 Mg Tablet 10 Mg PO DAILY Clonidine HCl 0.1 Mg Tablet 0.1 Mg PO TID Cefdinir 300 Mg Capsule 300 Mg PO BID Reported Aleve (Naproxen Sodium) 220 Mg Tablet 220 Mg PO Q6H PRN Aspirin EC (Aspirin) 81 Mg Tablet.dr 81 Mg PO DAILY Fish Oil 1,000 mg Capsule (Palmetto 3 Polyunsat Fatty Acids) 1,000 Mg Cap 1,000 Mg PO DAILY Vitamin C (Ascorbate Calcium) 500 Mg Tablet 500 Mg PO DAILY Centrum Complete Multivit Tab (Multivitamin/Iron/Folic Acid) 1 Each Tablet 1 Each PO DAILY Losartan Potassium 50 Mg Tablet 50 Mg PO 1500 Paroxetine HCl 20 Mg Tablet 20 Mg PO HS Metoprolol Tartrate 50 Mg Tablet 50 Mg PO BID Simvastatin 40 Mg Tablet 40 Mg PO HS Assessment/Pt Instructions Primary care provider in one week at intermediate Discharge Planning: <30 minutes discharge planning Discharge Instructions Discharge Diet: No Restrictions Activity as Tolerated: Yes Discharge Physical Examination Vital Signs Vital Signs Date Time Temp Pulse Resp B/P (MAP) Pulse Ox O2 Delivery O2 Flow Rate FiO2 04/15/19 08:00 Room Air 04/15/19 08:00 37.0 71 18 118/69 (85) 94 04/14/19 08:00 2.00 General Appearance: No Apparent Distress, WD/WN, Chronically ill Respiratory: Lungs Clear Cardiovascular: Regular Rate, Rhythm Neurologic/Psychiatric: Alert, Oriented x3, No Motor/Sensory Deficits, 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 Norm as Tested, Depressed Affect Allergies: Coded Allergies: No Known Drug Allergies (Unverified , 04/10/19) Discharge Summary Date of Admission Apr 10, 2019 at 12:39 Date of Discharge Discharge Date: Apr 15, 2019 Admission Diagnosis Assessment: Sepsis UTI N/V HTN OOC Plan: ABx HLIVF DC Tely Discharge Diagnosis Increase BP meds Fluid restriction Check sodium and potassium levels in morning (1) Sepsis Status: Acute Qualifiers: Qualified Codes: A41.9 - Sepsis, unspecified organism (2) UTI (urinary tract infection) Status: Acute Qualifiers: Qualified Codes: N30.00 - Acute cystitis without hematuria (3) Vomiting Status: Acute Qualifiers: Qualified Codes: R11.2 - Nausea with vomiting, unspecified (4) Hyponatremia Status: Acute Clinical Quality Measures DVT/VTE Risk/Contraindication: Risk Factor Score Per Nursin RFS Level Per Nursing on Admit: 4+=Very High MARK BARON DO Apr 15, 2019 13:43
--- NOTE | 2019-04-15 14:55 | NUR ---
CM/SS. Summary of discharge planning activities of this day. Patient discharged to new Medicare skilled placement with [facility] via their transport this p.m. SUMMARY: Visited with patient about next steps, she still expressed concern about returning home immediately from hospital. Offered to call her daughter(s) but she did not want me to. Discussed SNF and eligibility for Medicare to cover short term, patient inquired about the ALFs she knows in [facility]. Once patient understood that ALFs are private pay, she asked for referral to [facility] in her hometown. Provided referral, orders, Rx to [facility] team per new protocols. Once patient was accepted, updated physician and final orders were obtained. Patient stay anticipated less than 30 days, no CARE Assessment required. Patient and Unit RN updated, FS Admin/Shannon aware they can come any time now for patient. Patient to update her daughters who were not planning to come see her until tomorrow, one in [facility] and one in [place]. Goal is short term rehab to home care plan.
[2019-04-15] MEDS: LOSARTAN 50 MG (COZAAR) TAB PO SCH (15:22)
--- NOTE | 2019-04-15 15:50 | NUR ---
PATIENT LEFT UNIT WITH ALL BELONGINGS IN THE CARE OF [facility] HANG HE STAFF. PATIENT IS IN STABLE CONDITION WITH. REPORT CALLED TO MEIR RAYMUNDO AT [facility].
== END 2019-04-15 15:50 | DRG 872 ==
LOC: EDUNIT# 10:58 → ER FS 11:00 → 4TH 12:39
PROVIDERS: ADMIT Family Medicine; ATTEND Family Medicine
DX: A41.9 Sepsis, unspecified organism (principal); N30.00 Acute cystitis without hematuria; E87.1 Hypo-osmolality and hyponatremia; I10 Essential (primary) hypertension; E78.00 Pure hypercholesterolemia, unspecified; R11.2 Nausea with vomiting, unspecified; R53.81 Other malaise; B02.9 Zoster without complications
CPT/HCPCS: 36415; 51702; 71045; 74019; 80053; 81000; 83605; 83690; 83735; 85025; 87040; 87088; 94760; 96361; 96374

== ENCOUNTER → 2019-12-28 | Outpatient (CLI) | payer MEDICARE, OTHER ==
[~2019-12-28] MED LIST: ACHD5005 PO; AMLO10TA7 PO; AMLO5TAB9 PO; ASCO-262 PO; ASPI-983 PO; CEFD300C3 PO; CIPR250T3; CLON0.1T PO; ENOX40DI8 SC; FOLI1TAB6 PO; LOSA50TA63 PO; METO50TA15 PO; NAPR220T66 PO; OMG1KC PO; PARO20TA5 PO; POTA10TA36 PO; POTA10TA6 PO; SIMV40TA25 PO; VALA500T4 PO
[2019-12-28 13:39] LABS: ALANINE AMINOTRANSFERASE 15 U/L (0-55); ALKALINE PHOSPHATASE 77 U/L (40-136); BILIRUBIN,TOTAL 0.4 MG/DL (0.1-1.0); BUN/CREATININE RATIO 17; CALCIUM 9.3 MG/DL (8.5-10.1); CARBON DIOXIDE 29 MMOL/L (21-32); CHLORIDE 99 MMOL/L (98-107); CREATININE SERUM 0.86 MG/DL (0.60-1.30); GFR ESTIMATED > 60; GLUCOSE 100 MG/DL (70-105); POTASSIUM 4.3 MMOL/L (3.6-5.0); SODIUM 140 MMOL/L (135-145)
[2019-12-28 13:40] LABS: ALBUMIN 3.9 GM/DL (3.2-4.5)
[2019-12-28 15:28] LABS: TRIGLYCERIDES 240 MG/DL (<150); VLDL CHOLESTEROL 48 MG/DL (5-40)
[2019-12-28 15:33] LABS: CHOLESTEROL 173 MG/DL (< 200)
[2019-12-28 15:34] LABS: HDL CHOLESTEROL 49 MG/DL (40-60)
== END ==
LOC: LAB FS 11:37
PROVIDERS: ATTEND Family Medicine
DX: E78.5 Hyperlipidemia, unspecified (principal)
CPT/HCPCS: 36415; 80053; 80061

== ENCOUNTER 2020-04-11 06:27 | Emergency (ER) | payer MEDICARE, OTHER ==
[~2020-04-11] VITALS: Ht 157 cm; Wt 90.0 kg
[~2020-04-11 06:27] MED LIST changes: +ASPI-1238 PO; -ASPI-983 PO
[2020-04-11] MEDS ORDERED: LACTATED RINGERS 1,000 ML IV ONE (06:58)
[2020-04-11] MEDS ORDERED: KETOROLAC 30 MG/ML VIAL IVP ONE (07:00)
[2020-04-11 07:09] LABS: BASOPHILS % (AUTO) 0 % (0-10); EOSINOPHILS % (AUTO) 0 % (0-10); HEMATOCRIT 42 % (35-52); HEMOGLOBIN 14.8 G/DL (11.5-16.0); LYMPHOCYTES # (AUTO) 1.3 X 10^3 (1.0-4.0); LYMPHOCYTES % (AUTO) 7 % (12-44); MEAN CORPUSCULAR HEMOGLOBIN 30 PG (25-34); MEAN CORPUSCULAR HGB CONC 35 G/DL (32-36); MEAN CORPUSCULAR VOLUME 87 FL (80-99); MEAN PLATELET VOLUME 10.7 FL (7.4-10.4); MONOCYTES % (AUTO) 5 % (0-12); NEUTROPHILS # (AUTO) 16.8 X 10^3 (1.8-7.8); NEUTROPHILS % (AUTO) 88 % (42-75); PLATELET COUNT 220 10^3/uL (130-400); WHITE BLOOD COUNT 19.1 10^3/uL (4.3-11.0)
--- NOTE | 2020-04-11 07:13 | ED Fall/Injury ---
General Chief Complaint: Trauma-Non Activation Stated Complaint: RT ARM INJURY Nursing Triage Note: PT REPORTS FALLING LAST NIGHT FROM STANDING AND WAS UNABLE TO GET UP; PT REPORTS SHE WAS ON THE GROUND FROM 2100 HRS LAST NIGHT UNTIL BEING FOUND BY FAMILY THIS MORNING AROUND 0600. PT C/O RIGHT WRIST AND RIGHT ANKLE PAIN. Source: patient Exam Limitations: no limitations History of Present Illness Date Seen by Provider: Apr 11, 2020 Time Seen by Provider: 06:51 Initial Comments The patient presents to the ER by private conveyance with family and chief complaint that she was found this morning laying in her driveway. She had fallen out of her car onto the dirt on her right hip and had twisted her right ankle as well as landed on her right wrist causing swelling and pain. The fall occurred at 9:00 last night. She was unable to get herself back up or someone's health until her family across the street was getting up to leave for work in the [facility] at 6. She denies striking her head loss of consciousness. She does take aspirin but denies any blood thinners. She's not having nausea short of breath cough fever chills diarrhea dysuria. She says she just lost her footing and fell. She did not have lightheadedness or any symptoms prior to the fall. Allergies and Home Medications Allergies Coded Allergies: No Known Drug Allergies (Unverified , 04/10/19) Home Medications Amlodipine Besylate 10 Mg Tablet, 10 MG PO DAILY Prescribed by: MARK BARON on 04/14/19 0942 Ascorbate Calcium 500 Mg Tablet, 500 MG PO DAILY, (Reported) Aspirin 81 Mg Tablet.dr, 81 MG PO DAILY, (Reported) Cefdinir 300 Mg Capsule, 300 MG PO BID Prescribed by: MARK BARON on 04/13/19 1059 Clonidine HCl 0.1 Mg Tablet, 0.1 MG PO TID Prescribed by: MARK BARON on 04/14/19 0942 Hydrocodone Bit/Acetaminophen 1 Tab Tab, 1 TAB PO Q4H PRN for MOD Prescribed by: MARK BARON on 04/15/19 0949 Hydrocodone/Acetaminophen 1 Each Tablet, 1 EACH PO Q6H PRN for PAIN-BREAKTHROUGH Prescribed by: RONIT TEE on 04/11/20 0915 Losartan Potassium 50 Mg Tablet, 50 MG PO 1500, (Reported) Metoprolol Tartrate 50 Mg Tablet, 50 MG PO BID, (Reported) Multivitamin/Iron/Folic Acid 1 Each Tablet, 1 EACH PO DAILY, (Reported) Naproxen Sodium 220 Mg Tablet, 220 MG PO Q6H PRN for PAIN-MILD, (Reported) Nitrofurantoin Monohyd/M-Cryst 100 Mg Capsule, 1 TAB PO BID Prescribed by: RONIT TEE on 04/11/20 0918 Hext 3 Polyunsat Fatty Acids 1,000 Mg Cap, 1,000 MG PO DAILY, (Reported) Paroxetine HCl 20 Mg Tablet, 20 MG PO HS, (Reported) Potassium Chloride 10 Meq Tab.er.prt, 10 MEQ PO DAILY Prescribed by: MARK BARON on 04/15/19948 Simvastatin 40 Mg Tablet, 40 MG PO HS, (Reported) Valacyclovir HCl 500 Mg Tablet, 1,000 MG PO TID Prescribed by: MARK BARON on 04/15/19948 Patient Home Medication List Home Medication List Reviewed: Yes Review of Systems Review of Systems Constitutional: No chills, No diaphoresis Eyes: Denies Blindness, Denies Blurred Vision Ears, Nose, Mouth, Throat: denies ear pain, denies ear discharge Respiratory: No cough, No short of breath Cardiovascular: No chest pain, No edema Gastrointestinal: No abdominal pain, No nausea, No vomiting Genitourinary: No discharge, No dysuria, No frequency All Other Systems Reviewed Negative Unless Noted: Yes Past Tswmdbt-Jvbgvp-Sefgfc Hx Patient Social History Recent Foreign Travel: No Contact w/Someone Who Travel: No Recent Infectious Disease Expo: No Recent Hopitalizations: No Seasonal Allergies Seasonal Allergies: No Past Medical History Surgeries: Yes (R TKR) Hysterectomy, Joint Replacement Respiratory: No Currently Using CPAP: No Currently Using BIPAP: No Cardiac: Yes High Cholesterol, Hypertension Neurological: No Reproductive Disorders: No Female Reproductive Disorders: 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 8.7oz. 95.855570cv; 36.00 BMI Method: General Appearance: mild distress; No WD/WN HEENT: PERRL/EOMI, normal ENT inspection, TMs normal, pharynx normal, other (atraumatic) Neck: non-tender, full range of motion, supple, normal inspection Cardiovascular: normal peripheral pulses, regular rate, rhythm Respiratory: chest non-tender, normal breath sounds, no respiratory distress, no accessory muscle use Peripheral Pulses: 2+ Dorsalis Pedis (R), 2+ Left Dors-Pedis (L), 2+ Radial Pulses (R), 2+ Radial Pulses (L) Gastrointestinal: normal bowel sounds, non tender Extremities: swelling (right ankle with tenderness over the dorsum of the foot but no tenderness over either malleoli), other (swelling deformity of the right wrist.) Neurologic/Psychiatric: 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-XII nml as tested, no motor/sensory deficits, alert, normal mood/affect, oriented x 3 Skin: normal color, warm/dry Progress/Results/Core Measures Results/Orders Lab Results Laboratory Tests Test 04/11/20 06:57 04/11/20 07:30 Range/Units White Blood Count 19.1 H 4.3-11.0 10^3/uL Red Blood Count 4.87 4.35-5.85 10^6/uL Hemoglobin 14.8 11.5-16.0 G/DL Hematocrit 42 35-52 % Mean Corpuscular Volume 87 80-99 FL Mean Corpuscular Hemoglobin 30 25-34 PG Mean Corpuscular Hemoglobin Concent 35 32-36 G/DL Red Cell Distribution Width 13.5 10.0-14.5 % Platelet Count 220 130-400 10^3/uL Mean Platelet Volume 10.7 H 7.4-10.4 FL Neutrophils (%) (Auto) 88 H 42-75 % Lymphocytes (%) (Auto) 7 L 12-44 % Monocytes (%) (Auto) 5 0-12 % Eosinophils (%) (Auto) 0 0-10 % Basophils (%) (Auto) 0 0-10 % Neutrophils # (Auto) 16.8 H 1.8-7.8 X 10^3 Lymphocytes # (Auto) 1.3 1.0-4.0 X 10^3 Monocytes # (Auto) 1.0 0.0-1.0 X 10^3 Eosinophils # (Auto) 0.0 0.0-0.3 10^3/uL Basophils # (Auto) 0.0 0.0-0.1 10^3/uL Neutrophils % (Manual) 80 % Lymphocytes % (Manual) 10 % Monocytes % (Manual) 7 % Basophils % (Manual) 1 % Band Neutrophils 2 % Blood Morphology Comment NORMAL Sodium Level 134 L 135-145 MMOL/L Potassium Level 4.9 3.6-5.0 MMOL/L Chloride Level 99 98-107 MMOL/L Carbon Dioxide Level 20 L 21-32 MMOL/L Anion Gap 15 H 5-14 MMOL/L Blood Urea Nitrogen 18 7-18 MG/DL Creatinine 0.90 0.60-1.30 MG/DL Estimat Glomerular Filtration Rate 60 BUN/Creatinine Ratio 20 Glucose Level 130 H 70-105 MG/DL Calcium Level 9.5 8.5-10.1 MG/DL Corrected Calcium 9.3 8.5-10.1 MG/DL Total Bilirubin 0.5 0.1-1.0 MG/DL Aspartate Amino Transf (AST/SGOT) 56 H 5-34 U/L Alanine Aminotransferase (ALT/SGPT) 23 0-55 U/L Alkaline Phosphatase 79 40-136 U/L Total Creatine Kinase 754 H 29-168 U/L Total Protein 8.4 H 6.4-8.2 GM/DL Albumin 4.3 3.2-4.5 GM/DL Urine Color YELLOW Urine Clarity SL CLOUDY Urine pH 5.5 5-9 Urine Specific [place] >=1.030 1.016-1.022 Urine Protein 2+ H NEGATIVE Urine Glucose (UA) NEGATIVE NEGATIVE Urine Ketones NEGATIVE NEGATIVE Urine Nitrite NEGATIVE NEGATIVE Urine Bilirubin NEGATIVE NEGATIVE Urine Urobilinogen 0.2 < = 1.0 MG/DL Urine Leukocyte Esterase NEGATIVE NEGATIVE Urine RBC (Auto) 1+ H NEGATIVE Urine RBC 5-10 H /HPF Urine WBC 5-10 H /HPF Urine Squamous Epithelial Cells 10-25 H /HPF Urine Crystals NONE /LPF Urine Bacteria MODERATE H /HPF Urine Casts PRESENT /LPF Urine Hyaline Casts 2-5 H /LPF Urine Mucus SMALL H /LPF Urine Culture Indicated YES My Orders Orders - RONIT TEE Cbc With Automated Diff (04/11/20 06:58) Comprehensive Metabolic Panel (04/11/20 06:58) Creatine Kinase (04/11/20 06:58) Ua Culture If Indicated (04/11/20 06:58) Ed Iv/Invasive Line Start (04/11/20 06:58) Lactated Ringers (Lr 1000 Ml Iv Solution (04/11/20 06:58) Ketorolac Injection (Toradol Injection) (04/11/20 07:00) Wrist, Right, 3 Views Or More (04/11/20 06:58) Foot, Right, 3 View (04/11/20 06:58) Manual Differential (04/11/20 06:57) Urine Culture (04/11/20 07:30) Medications Given in ED Current Medications Medications Dose Ordered Sig/Sandy Route Start Time Stop Time Status Last Admin Dose Admin Ketorolac Tromethamine 30 mg ONCE ONCE IVP 04/11/20 07:00 04/11/20 07:04 DC 04/11/20 07:14 30 MG Lactated Ringer's 1,000 ml @ 0 mls/hr Q0M ONCE IV 04/11/20 06:58 04/11/20 07:04 DC 04/11/20 07:15 1,000 MLS/HR Vital Signs/I&O 04/11/20 04/11/20 06:49 09:32 Temp 36.4 Pulse 78 68 Resp 18 16 B/P (MAP) 188/85 (119) 171/69 Pulse Ox 95 94 O2 Delivery Room Air Room Air Blood Pressure Mean: 119 Progress Progress Note : Time: 09:00 Progress Note CPK is mildly elevated. We did give her some IV fluids. She is able to urinate and ambulate okay then we'll let her go home. Put a splint on her right wrist. Diagnostic Imaging Diagonstic Imaging: Xray Comments NAME: GWENDOLYN ALCANTAR MED REC#: [id number] PT STATUS: REG ER : 1935 PHYSICIAN: RONIT TEE MD ADMIT DATE: 04/11/20/ER Draft Date of Exam:04/11/20 WRIST, RIGHT, 3 VIEWS OR MORE HISTORY: Fall with right wrist pain. TECHNIQUE: 3 views of the right wrist. COMPARISON: None FINDINGS: There is diffuse osteopenia. There is an impacted, mildly posteriorly displaced and angulated fracture of the distal right radius, with extension to the articular surface at the medial side. There are severe degenerative changes at the basal joints of the thumb. Additional degenerative changes are seen elsewhere in the right hand. There is marked soft tissue swelling about the right wrist. IMPRESSION: 1. Impacted, mildly displaced and angulated intra-articular fracture of the distal right radius. 2. Marked soft tissue swelling about the right wrist. 3. Severe degenerative changes at the basal joints of the thumb. Dictated on workstation # [id number] Dict: 04/11/20806 Trans: 04/11/20816 [id number] Interpreted by: NERI ARIZMENDI MD Electronically signed by: Reviewed: Reviewed by Me Diagonstic Imaging: Xray Plain Films/CT/US/NM/MRI: other Comments NAME: GWENDOLYN ALCANTAR [facility] REC#: [id number] PT STATUS: REG ER : 1935 PHYSICIAN: RONIT TEE MD ADMIT DATE: 04/11/20/ER Signed Date of Exam:04/11/20 FOOT, RIGHT, 3 VIEW HISTORY: Fall with right foot pain at the 5th metatarsal base. TECHNIQUE: 3 views of the right foot. COMPARISON: None FINDINGS: There is deformity of the 5th metatarsal from old healed fracture which was mildly displaced. There are severe degenerative changes in the midfoot. There is calcaneal enthesopathy. No cortical erosions are seen. There are mild degenerative changes at the 1st MTP joint. IMPRESSION: 1. Old posttraumatic deformity of the right 5th metatarsal with no acute fracture seen. 2. 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 Dictated by: Dictated on workstation # [id number] Dict: 04/11/20804 Trans: 04/11/20838 [id number] Interpreted by: NERI ARIZMENDI MD Electronically signed by: NERI ARIZMENDI MD 04/11/20838 Reviewed: Reviewed by Me Departure Impression Primary Impression: Fall Qualified Codes: W19.XXXA - Unspecified fall, initial encounter Additional Impressions: Mild dehydration Right radial fracture Qualified Codes: S52.501A - Unspecified fracture of the lower end of right radius, initial encounter for closed fracture Right foot sprain Qualified Codes: S93.601A - Unspecified sprain of right foot, initial encounter UTI (urinary tract infection) Qualified Codes: N30.00 - Acute cystitis without hematuria Disposition: HOME, SELF-CARE Condition: Stable Departure-Patient Inst. Decision time for Depature: 09:00 Referrals: MILES ROONEY MD (PCP/Family) Primary Care Physician LISETTE MEHTA MD Patient Instructions: Forearm Fracture (DC), Foot Sprain (DC) Add. Discharge Instructions: Ice applied to your wrist for 20 minutes every 2 hours while awake for the first 2 days. You may also use topical creams. Tylenol and Motrin as necessary. If you have severe intractable pain you may use hydrocodone one tablet every 6 hours. Keep the splint on except to bathe. If you have tingling in the fingers then you should elevate the hand above the level of your heart and loosen the wraps. Call Dr. Mehta, orthopedic surgeon in follow-up in 3-5 days in the clinic. Macrobid one capsule twice a day for UTI. Drink plenty of fluids. All discharge instructions reviewed with patient and/or family. Voiced understanding. Scripts Nitrofurantoin Monohyd/M-Cryst (Macrobid 100 mg Capsule) 100 Mg Capsule 1 TAB PO BID for 7 Days, #14 CAP 0 Refills Prov: RONIT TEE 04/11/20 Hydrocodone/Acetaminophen (Hydrocodone-Acetamin 5-325 mg) 1 Each Tablet 1 EACH PO Q6H PRN for PAIN-BREAKTHROUGH, #12 TAB 0 Refills Prov: RONIT TEE 04/11/20 Copy Copies To 1: LISETTE MEHTA MD, TITUS J Apr 11, 2020 07:13
[2020-04-11 07:28] LABS: ALBUMIN 4.3 GM/DL (3.2-4.5); POTASSIUM 4.9 MMOL/L (3.6-5.0)
[2020-04-11 07:29] LABS: CALCIUM 9.5 MG/DL (8.5-10.1)
[2020-04-11 07:30] LABS: TOTAL PROTEIN 8.4 GM/DL (6.4-8.2)
[2020-04-11 07:32] LABS: BILIRUBIN,TOTAL 0.5 MG/DL (0.1-1.0)
[2020-04-11 07:34] LABS: CREATININE SERUM 0.9 MG/DL (0.60-1.30)
[2020-04-11 07:37] LABS: BAND NEUTROPHILS 2 %; BASOPHILS % (MANUAL) 1 %; LYMPHOCYTES % (MANUAL) 10 %; MONOCYTES % (MANUAL) 7 %; NEUTROPHILS % (MANUAL) 80 %; RBC MORPH NORMAL
[2020-04-11 07:39] LABS: BILIRUBIN,URINE NEGATIVE (NEGATIVE); CLARITY,URINE SL CLOUDY; COLOR,URINE YELLOW; GLUCOSE, URINE (UA) NEGATIVE (NEGATIVE); KETONES,URINE NEGATIVE (NEGATIVE); LEUKOCYTE ESTERASE ,URINE NEGATIVE (NEGATIVE); NITRITE,URINE NEGATIVE (NEGATIVE); PH,URINE 5.5 (5-9); PROTEIN,URINE 2+ (NEGATIVE)
[2020-04-11 07:50] LABS: BACTERIA,URINE MODERATE /HPF
--- NOTE | 2020-04-11 08:16 | Diagnostic Imaging Report ---
HISTORY: Fall with right foot pain at the 5th metatarsal base. TECHNIQUE: 3 views of the right foot. COMPARISON: None FINDINGS: There is deformity of the 5th metatarsal from old healed fracture which was mildly displaced. There are severe degenerative changes in the midfoot. There is calcaneal enthesopathy. No cortical erosions are seen. There are mild degenerative changes at the 1st MTP joint. IMPRESSION: 1. Old posttraumatic deformity of the right 5th metatarsal with no acute fracture seen. 2. 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 Dictated by: Dictated on workstation # [id number]
--- NOTE | 2020-04-11 08:17 | Diagnostic Imaging Report ---
HISTORY: Fall with right wrist pain. TECHNIQUE: 3 views of the right wrist. COMPARISON: None FINDINGS: There is diffuse osteopenia. There is an impacted, mildly posteriorly displaced and angulated fracture of the distal right radius, with extension to the articular surface at the medial side. There are severe degenerative changes at the basal joints of the thumb. Additional degenerative changes are seen elsewhere in the right hand. There is marked soft tissue swelling about the right wrist. IMPRESSION: 1. Impacted, mildly displaced and angulated intra-articular fracture of the distal right radius. 2. Marked soft tissue swelling about the right wrist. 3. Severe degenerative changes at the basal joints of the thumb. Dictated by: Dictated on workstation # [id number]
--- NOTE | 2020-04-11 08:23 | NUR ---
RESTING IN BED WITHOUT DIFFICULTY.
--- NOTE | 2020-04-11 08:57 | NUR ---
IN TALKING TO THE PT AND FAMILY IS ON HOLD TO TALK TO
[2020-04-11] MEDS ORDERED: ACHD5005 PO (09:15)
[2020-04-11] MEDS ORDERED: NITR-65 PO (09:18)
[2020-04-11 09:32] VITALS: BP 171/69
== END 2020-04-11 09:32 | disposition home or self-care (01) ==
LOC: EDUNIT# 06:27 → ER 06:33
DX: S52.571A Other intraarticular fracture of lower end of right radius, initial encounter for closed fracture (principal); S93.601A Unspecified sprain of right foot, initial encounter; E86.0 Dehydration; N39.0 Urinary tract infection, site not specified; I10 Essential (primary) hypertension; E78.00 Pure hypercholesterolemia, unspecified; Z96.651 Presence of right artificial knee joint; Z79.82 Long term (current) use of aspirin; Z82.49 Family history of ischemic heart disease and other diseases of the circulatory system; V48.4XXA Person boarding or alighting a car injured in noncollision transport accident, initial encounter; X50.1XXA Overexertion from prolonged static or awkward postures, initial encounter
CPT/HCPCS: 36415; 73110; 73630; 80053; 81000; 82550; 85007; 85027; 87088

== ENCOUNTER 2020-04-17 05:42 | Outpatient (CLI) | payer MEDICARE, OTHER ==
[~2020-04-17] VITALS: Ht 157 cm; Wt 100.0 kg
[~2020-04-17 05:42] MED LIST changes: +NITR-65 PO
[2020-04-18] MEDS ORDERED: TRM50T PO (12:40)
== END 2020-04-17 11:17 | disposition home or self-care (01) ==
LOC: PREOP 05:42
PROVIDERS: ATTEND Orthopaedic Surgery
DX: Z01.818 Encounter for other preprocedural examination (principal)

== ENCOUNTER 2020-04-18 08:17 | Day surgery (SDC) | payer MEDICARE, OTHER ==
[2020-04-18] VITALS (10 sets, daily range): BP systolic 155–201; BP diastolic 65–83
[~2020-04-18] VITALS: Ht 157 cm; Wt 100.0 kg
[~2020-04-18 08:17] MED LIST changes: +HYDROcodone/APAP 7.5 MG/325 MG (LORTAB, LORCET PLUS) TABLET PO PRN
[2020-04-18] MEDS ORDERED: LACTATED RINGERS 1,000 ML IV PRN (08:26)
[2020-04-18] MEDS ORDERED: ceFAZolin INJECTION 1,000 MG in WATER (STERILE) FOR INJECTION 10 ML IV ONE (08:30)
--- NOTE | 2020-04-18 09:03 | Progress Note-Pre Operative ---
Pre-Operative Progress Note H&P Reviewed The H&P was reviewed, patient examined and no changes noted. Date Seen by Provider: Apr 18, 2020 Time Seen by Provider: :02 Date H&P Reviewed: Apr 18, 2020 Time H&P Reviewed: 09:02 Pre-Operative Diagnosis: right displaced distal radius fracture EHSAN HALLMAN MD Apr 18, 2020 09:03
--- NOTE | 2020-04-18 09:04 | Progress Note-Post Operative ---
Post-Operative Progess Note Surgeon (s)/Neon Sign Servicer (s) Surgeon EHSAN HALLMAN MD Neon Sign Servicer: Stevo Harris Pre-Operative Diagnosis right displaced distal radius fracture Post-Operative Diagnosis right displaced distal radius fracture Procedure & Operative Findings Date of Procedure 04/18/20 Procedure Performed/Findings ORIF right distal radius Anesthesia Type GETA Estimated Blood Loss Estimated blood loss (mL): minimal Specimens/Packing Specimens Removed none Packing: none EHSAN HALLMAN MD Apr 18, 2020 09:04
[2020-04-18] MEDS ORDERED: LIDOCAINE PF 0.5% 50 ML (XYLOCAINE) VIAL ONE (09:17)
[2020-04-18] MEDS ORDERED: LIDOCAINE PF 2% 5 ML (XYLOCAINE) VIAL ONE (09:19)
[2020-04-18] MEDS ORDERED: MIDAZOLAM 2 MG/2 ML (VERSED) VIAL ONE (09:19)
[2020-04-18] MEDS ORDERED: proPOfol 200 MG/20 ML (DIPRIVAN) VIAL IV ONE (09:19)
[2020-04-18] MEDS ORDERED: fentaNYL INJECTION 100 MCG/2 ML AMP ONE (09:19)
[2020-04-18] MEDS ORDERED: SEVOFLURANE (ULTANE) 15 ML INHAL SOLN ONE ×6 (09:20→10:51)
[2020-04-18] MEDS ORDERED: ROCURONIUM 10 MG/ML 5 ML SYRINGE IV ONE (11:13)
[2020-04-18] MEDS ORDERED: GLYCOPYRROLATE 0.2 MG/ML (ROBINUL) 2 ML VIAL ONE (11:14)
[2020-04-18] MEDS ORDERED: NEOSTIGMINE 3 MG/3 ML VIAL ONE (11:14)
[2020-04-18] MEDS ORDERED: MEPERIDINE (DEMEROL) INJ 50 MG/ML IVP ONE (11:30)
[2020-04-18] MEDS ORDERED: morphine INJ 10 MG/ML 1ML (SYR OR VIAL) IVP ONE (11:30)
[2020-04-18] MEDS ORDERED: ONDANSETRON 4 MG/2 ML (SDV) Z0FRAN IVP PRN (11:30)
--- NOTE | 2020-04-18 11:43 | Diagnostic Imaging Report ---
INDICATION: Fluoroscopy for right wrist ORIF. Fluoroscopy was provided in the OR during right wrist ORIF. 14 seconds of fluoroscopic time was utilized. 2 images were obtained demonstrating a volar plate and numerous screws transfixing distal radius fracture. Alignment is anatomic. IMPRESSION: Fluoroscopy for right wrist ORIF. Dictated by: Dictated on workstation # [id number]
[2020-04-18] MEDS ORDERED: TRM50T PO (12:40)
--- NOTE | 2020-04-18 13:06 | Anesthesia-General Post-Op ---
General Patient Condition Mental Status/LOC: Same as Preop Cardiovascular: Satisfactory Nausea/Vomiting: Absent Respiratory: Satisfactory Pain: Controlled Complications: Absent Post Op Complications Complications None Follow Up Care/Instructions Patient Instructions None needed. Anesthesia/Patient Condition Patient Condition Patient is doing well, no complaints, stable vital signs, no apparent adverse anesthesia problems. No complications reported per nursing. TANI ZHOU CRNA Apr 18, 2020 13:06
--- NOTE | 2020-04-18 14:15 | NUR ---
HAS RESTED QUIETLY IN BED THROUGHOUT RECOVERY. SPLINT OVER KENDRICK WRAPPED DRESSING HAS BEEN D/I TO RIGHT HAND/FOREARM, WITH ICE PACK ON, ELEVATED. FINGERS WARM, CAP REFILL <3 SECONDS. ABLE TO MOVE FINGERS EASILY, SLIGHTLY SWOLLEN. +SENSATION. DENIES PAIN, ALERT. HAS TAKEN PO FLUIDS WITHOUT PROBLEM AND HAS BEEN UP TO BR X2 TO VOID, GAIT STEADY. DAUGHTER STATES SHE DROPPED PT'S DENTURE ON THE FLOOR POST OPERATIVELY AND THAT IT BROKE. PT AND DAUGHTER STATE THEY ARE READY FOR DISMISSAL.
--- NOTE | 2020-04-18 15:36 | OPERATIVE REPORT ---
DATE OF SERVICE: PREOPERATIVE DIAGNOSIS: Closed displaced right distal radius fracture (Colles type). POSTOPERATIVE DIAGNOSIS: Closed displaced right distal radius fracture (Colles type). PROCEDURE PERFORMED: Open reduction and internal fixation of the right distal radius. SURGEON: Jamie Anthony MD STOCK BROKER: Stevo Harris, who assisted throughout the procedure and closed the incision. ANESTHESIA: General endotracheal by Tommy Brizuela CRNA. TOURNIQUET TIME: 37 minutes at 250 mmHg. ESTIMATED BLOOD LOSS: Minimal. DRAINS: None. COMPLICATIONS: None. POSTOPERATIVE PLAN: Splint wear for 4 to 6 weeks. The patient was transferred to the recovery room awake and in stable condition. STATEMENT OF MEDICAL NECESSITY: The patient is an 84-year-old female, who fell over the weekend, sustaining a right distal radius fracture. This fracture was displaced and intra-articular. The patient was counseled regarding treatment options and elected to proceed with surgical intervention. DESCRIPTION OF PROCEDURE: After risks and benefits of procedure were discussed and questions were answered and informed consent was signed and placed on chart, the operative site was confirmed and prepped in normal initialed by the surgeon. The patient was then transferred to the operating room and after adequate levels of general endotracheal anesthetic were obtained, a timeout was called confirming the operative site. The right upper extremity was prepped and draped in the usual sterile fashion with arm elevated and tourniquet inflated to 250 mmHg. A longitudinal incision was made over the flexor carpi radialis. The flexor carpi radialis was retracted ulnarly. The flexor pollicis longus was identified and retracted radially along with the neurovascular bundle. The pronator quadratus was elevated off the fracture site. The fracture was anatomically reduced and a [employer]ynthes distal radius plate was placed with four distal locking screws and three proximal cortical screws, all with good purchase. Fluoroscopy of the AP, lateral and oblique planes revealed anatomic reduction of the fracture with a well-placed hardware. The wrist was taken through range of motion and found to be stable. The wound was copiously irrigated. The tourniquet was deflated. Pressure was used for hemostasis. Wound was further irrigated. A 3-0 Vicryl was used to reapproximate subcutaneous tissue and skin was closed with 4-0 nylon in vertical mattress interrupted fashion. The incision was infiltrated with plain Marcaine. A soft dressing and brace were applied and the patient was transferred to the recovery room awake and in stable condition. Job ID: [id number] DocumentID: [id number] Dictated Date: 04/18/2020 11:21:32 Specialty Department Supervisor Date: 04/18/2020 15:35:29 Dictated By: JAMIE NATHONY MD
== END 2020-04-18 14:15 | disposition home or self-care (01) ==
LOC: SDC 08:17
PROVIDERS: ATTEND Orthopaedic Surgery
DX: S52.531A Colles' fracture of right radius, initial encounter for closed fracture (principal); I10 Essential (primary) hypertension; Z79.899 Other long term (current) drug therapy; Z90.710 Acquired absence of both cervix and uterus; X58.XXXA Exposure to other specified factors, initial encounter
CPT/HCPCS: 25608; 76000; 87081; C1713 ×4

== ENCOUNTER → 2020-05-03 | Outpatient (CLI) | payer MEDICARE, OTHER ==
[~2020-05-03] MED LIST changes: -HYDROcodone/APAP 7.5 MG/325 MG (LORTAB, LORCET PLUS) TABLET PO PRN; +TRM50T PO
--- NOTE | 2020-05-03 13:54 | Diagnostic Imaging Report ---
INDICATION: Right wrist fracture. Time of exam 1:46 PM Comparison is made with prior radiograph from 04/11/2020. There has been interval placement of a volar plate and numerous screws transfixing distal radius fracture. Alignment is near-anatomic. Fracture lines do remain partially visible. Significant degenerative changes in the carpus is noted. There is triscaphe and 1st CMC joint degenerative changes. Visualized metacarpals are intact. IMPRESSION: ORIF distal radius fracture. Alignment is anatomic. Fracture lines remain partly visible. Dictated by: Dictated on workstation # [id number]
--- NOTE | 2020-05-03 16:32 | Diagnostic Imaging Report ---
INDICATION: Distal radius fracture. Additional views of the right wrist were obtained. There is a volar plate and screws transfixing the distal radius fracture. Carpus again demonstrates degenerative changes. There is some slight widening of the scapholunate space which can be seen with scapholunate dissociation. There is a transversely oriented lucency through the scaphoid, suspicious for scaphoid waist fracture. This appears to be nondisplaced. There appear to be fractures in the region of the triquetrum and pisiform. Triscaphe and first CMC joint degenerative changes are noted. IMPRESSION: Postoperative changes to the distal radius. There is some widening of the scapholunate space which can be seen with scapholunate dissociation. In addition, there is a transversely oriented lucency through the waist of the scaphoid, suspicious for fracture. There are also fractures in the region of the triquetrum and pisiform. Dictated by: Dictated on workstation # [id number]
== END ==
LOC: RAD FS 13:39
PROVIDERS: ATTEND Nurse Practitioner
DX: S52.531A Colles' fracture of right radius, initial encounter for closed fracture (principal); Z98.890 Other specified postprocedural states; X58.XXXA Exposure to other specified factors, initial encounter
CPT/HCPCS: 73100; 73110

== ENCOUNTER → 2020-08-06 | Outpatient (CLI) | payer MEDICARE, OTHER ==
[~2020-08-06] MED LIST changes: +AMLO-250 PO; +AMLO-251 PO; -AMLO10TA7 PO; -AMLO5TAB9 PO; +CLN.1T PO; -CLON0.1T PO
[2020-08-06 12:28] LABS: ALANINE AMINOTRANSFERASE 15 U/L (0-55); ALKALINE PHOSPHATASE 87 U/L (40-136); BILIRUBIN,TOTAL 0.4 MG/DL (0.1-1.0); BUN/CREATININE RATIO 17; CALCIUM 9.6 MG/DL (8.5-10.1); CARBON DIOXIDE 28 MMOL/L (21-32); CHLORIDE 101 MMOL/L (98-107); CREATININE SERUM 0.81 MG/DL (0.60-1.30); GFR ESTIMATED > 60; GLUCOSE 104 MG/DL (70-105); POTASSIUM 4.4 MMOL/L (3.6-5.0); SODIUM 139 MMOL/L (135-145)
[2020-08-06 12:29] LABS: ALBUMIN 4.2 GM/DL (3.2-4.5); TOTAL PROTEIN 7.2 GM/DL (6.4-8.2)
[2020-08-06 15:02] LABS: CHOLESTEROL 195 MG/DL (< 200); HDL CHOLESTEROL 47 MG/DL (40-60); TRIGLYCERIDES 298 MG/DL (<150); VLDL CHOLESTEROL 60 MG/DL (5-40)
== END ==
LOC: LAB FS 11:24
PROVIDERS: ATTEND Family Medicine
DX: E78.5 Hyperlipidemia, unspecified (principal)
CPT/HCPCS: 36415; 80053; 80061

== ENCOUNTER → 2021-02-11 | Outpatient (CLI) | payer MEDICARE, OTHER ==
[2021-02-11 11:57] LABS: ALANINE AMINOTRANSFERASE 12 U/L (0-55); ALKALINE PHOSPHATASE 81 U/L (40-136); BILIRUBIN,TOTAL 0.4 MG/DL (0.1-1.0); BUN/CREATININE RATIO 17; CALCIUM 9.3 MG/DL (8.5-10.1); CARBON DIOXIDE 28 MMOL/L (21-32); CHLORIDE 100 MMOL/L (98-107); CREATININE SERUM 0.76 MG/DL (0.60-1.30); GFR ESTIMATED > 60; GLUCOSE 95 MG/DL (70-105); POTASSIUM 4.5 MMOL/L (3.6-5.0); SODIUM 138 MMOL/L (135-145); TOTAL PROTEIN 6.7 GM/DL (6.4-8.2)
[2021-02-11 15:29] LABS: CHOLESTEROL 193 MG/DL (< 200); HDL CHOLESTEROL 55 MG/DL (40-60); TRIGLYCERIDES 229 MG/DL (<150); VLDL CHOLESTEROL 46 MG/DL (5-40)
== END ==
LOC: LAB FS 10:55
PROVIDERS: ATTEND Family Medicine
DX: I10 Essential (primary) hypertension (principal)
CPT/HCPCS: 36415; 80053; 80061

== ENCOUNTER → 2021-10-25 | Outpatient (CLI) | payer MEDICARE, OTHER ==
[~2021-10-25] MED LIST changes: +POTA-160 PO; -POTA10TA36 PO; +POTA10TA37 PO; -POTA10TA6 PO
[2021-10-25 12:28] LABS: BILIRUBIN,TOTAL 0.4 MG/DL (0.1-1.0); CALCIUM 9.7 MG/DL (8.5-10.1); CREATININE SERUM 0.94 MG/DL (0.60-1.30); POTASSIUM 4.2 MMOL/L (3.6-5.0); TOTAL PROTEIN 7.5 GM/DL (6.4-8.2)
[2021-10-25 12:29] LABS: ALBUMIN 4.1 GM/DL (3.2-4.5)
== END ==
LOC: LAB FS 11:32
PROVIDERS: ATTEND Family Medicine
DX: E78.5 Hyperlipidemia, unspecified (principal)
CPT/HCPCS: 36415; 80053; 80061

== ENCOUNTER → 2022-05-05 | Outpatient (CLI) | payer MEDICARE, OTHER ==
[~2022-05-05] MED LIST changes: +POTA-177 PO; -POTA10TA37 PO
[2022-05-05 12:46] LABS: BILIRUBIN,TOTAL 0.4 MG/DL (0.1-1.0); CALCIUM 9.4 MG/DL (8.5-10.1); CREATININE SERUM 0.84 MG/DL (0.60-1.30); POTASSIUM 4.1 MMOL/L (3.6-5.0)
[2022-05-05 12:47] LABS: ALBUMIN 3.9 GM/DL (3.2-4.5); TOTAL PROTEIN 7.1 GM/DL (6.4-8.2)
== END ==
LOC: LAB FS 11:52
PROVIDERS: ATTEND Family Medicine
DX: E78.5 Hyperlipidemia, unspecified (principal); I10 Essential (primary) hypertension
CPT/HCPCS: 36415; 80053; 80061

== ENCOUNTER → 2022-05-07 | Outpatient (CLI) | payer MEDICARE, OTHER ==
[2022-05-07 16:41] LABS: BASOPHILS # (AUTO) 0.1 10^3/uL (0.0-0.1); BASOPHILS % (AUTO) 1 % (0-10); EOSINOPHILS # (AUTO) 0.2 10^3/uL (0.0-0.3); EOSINOPHILS % (AUTO) 2 % (0-10); HEMATOCRIT 41 % (35-52); LYMPHOCYTES # (AUTO) 2.9 10^3/uL (1.0-4.0); LYMPHOCYTES % (AUTO) 29 % (12-44); MEAN CORPUSCULAR HEMOGLOBIN 30 pg (25-34); MEAN CORPUSCULAR HGB CONC 35 g/dL (32-36); MEAN CORPUSCULAR VOLUME 88 fL (80-99); MEAN PLATELET VOLUME 10.1 fL (9.0-12.2); MONOCYTES # (AUTO) 0.8 10^3/uL (0.0-1.0); MONOCYTES % (AUTO) 8 % (0-12); NEUTROPHILS # (AUTO) 5.9 10^3/uL (1.8-7.8); NEUTROPHILS % (AUTO) 60 % (42-75); PLATELET COUNT 173 10^3/uL (130-400); WHITE BLOOD COUNT 9.9 10^3/uL (4.3-11.0)
== END ==
LOC: LAB FS 16:22
PROVIDERS: ATTEND Family Medicine
DX: I10 Essential (primary) hypertension (principal); F41.1 Generalized anxiety disorder; E78.5 Hyperlipidemia, unspecified; R73.9 Hyperglycemia, unspecified; R23.3 Spontaneous ecchymoses
CPT/HCPCS: 36415; 85025

== ENCOUNTER → 2023-02-20 | Outpatient (CLI) | payer MEDICARE, OTHER ==
[~2023-02-20] MED LIST changes: +CATHETER FLUSH 10 ML SYR IV PRN; +HOLD METFORMIN - RECEIVED CONTRAST 20 ML VIAL IV SCH; +IOHEXOL 350 MG/ML 100 ML (OMNIPAQUE 350) VIAL IV ONE; +NS 100 ML (IVPB) BAG IV ONE
[2023-02-20 10:06] LABS: CREATININE SERUM 0.69 MG/DL (0.60-1.30)
--- NOTE | 2023-02-20 10:53 | Diagnostic Imaging Report ---
EXAMINATION: CT abdomen and pelvis with intravenous contrast. TECHNIQUE: Multiple contiguous axial images were obtained through the abdomen and pelvis after the uneventful administration of intravenous contrast. All CT scans use one or more of the following dose optimizing techniques: automated exposure control, MA and/or KvP adjustment based on patient size and exam type or iterative reconstruction. HISTORY: Disorder of pancreatic internal secretions. COMPARISON: None available. FINDINGS: Lung bases: Bibasilar dependent atelectasis. Solid organs: The liver is normal without focal lesion. Multiple layering hyperdense stones within the gallbladder. There is no biliary ductal dilation. There is a 1.1 cm cystic lesion within the pancreatic head. Pancreas is otherwise unremarkable without ductal dilatation. Spleen is normal. Adrenal glands are normal. The kidneys are normal without hydronephrosis. Bowel: The stomach and small bowel are normal without obstruction. There is scattered colonic diverticulosis. There are no secondary signs of acute appendicitis. Peritoneum: There is no intraperitoneal free fluid or free air. No suspicious lymphadenopathy. Vasculature: Calcification of the aorta without aneurysm. Musculoskeletal: Degenerative changes of the spine without suspicious osseous lesion or compression fracture. There is a small fat-containing periumbilical hernia. Surgical changes from left hip arthroplasty. Pelvis: The uterus is surgically absent. No adnexal mass. The urinary bladder is normal. IMPRESSION: 1. A 1.1 cm cystic lesion within the pancreatic head, indeterminate. Otherwise unremarkable appearance of the pancreas. Differential consideration could include a side branch type IPMN. Consider follow-up MRI pancreas protocol with IV contrast. 2. Cholelithiasis. 3. Colonic diverticulosis without findings of diverticulitis. Dictated by: Dictated on workstation # [id number]
== END ==
LOC: LAB FS 09:28
PROVIDERS: ATTEND Family Medicine
DX: E16.9 Disorder of pancreatic internal secretion, unspecified (principal); G60.9 Hereditary and idiopathic neuropathy, unspecified
CPT/HCPCS: 36415; 74177; 82565; 84520